=== PATIENT | male | born 1965 | race Caucasian/White ===

== ENCOUNTER → 2020-07-09 13:17 | Outpatient (BNVA) | payer OTHER, SELFPAY | PROVIDERS: PCP Internal Medicine Geriatric Medicine; Visit Provider Internal Medicine | DX: Z76.89 Persons encountering health services in other specified circumstances (principal) ==

== ENCOUNTER → 2020-09-03 15:57 | Outpatient (BNVA) | payer OTHER, SELFPAY | PROVIDERS: PCP Internal Medicine Geriatric Medicine; Visit Provider Internal Medicine | DX: Z76.89 Persons encountering health services in other specified circumstances (principal) ==

== ENCOUNTER → 2021-01-28 14:59 | Outpatient (BNVA) | payer OTHER, SELFPAY | PROVIDERS: PCP Internal Medicine Geriatric Medicine; Visit Provider Internal Medicine ==

== ENCOUNTER → 2021-06-24 15:14 | Outpatient (BNVA) | payer OTHER, SELFPAY | PROVIDERS: PCP Internal Medicine Geriatric Medicine; Visit Provider Internal Medicine ==

== ENCOUNTER 2024-06-15 07:19 | Outpatient (REF) | payer OTHER, SELFPAY ==
[2024-06-15 08:00] LABS: MANUAL DIFF FLAG NO
[2024-06-15 08:52] LABS: Basophils Absolute Auto 0.1 X10*3/uL (0.0-0.2); Basophils Percent Auto 1.3 % (0-2); Eosinophils Absolute Auto 0.1 X10*3/uL (0.0-0.4); Hemoglobin 16.5 g/dl (14.0-18.0); Imm Gran Abs Auto 0.06 X10*3/uL (0.00-0.03); Lymphocytes Absolute Auto 1.9 X10*3/uL (1.2-4.9); Lymphocytes Percent Auto 31.1 % (20-40); Mean Corpuscular Hemoglobin 29.9 pg (27.0-33.0); Mean Corpuscular Volume 90.6 fL (80.0-98.0); Mean Platelet Volume 10.3 fL (9.4-12.4); Monocytes Absolute Auto 0.6 X10*3/uL (0.1-1.2); Monocytes Percent Auto 9.2 % (2-11); Neutrophils Absolute Auto 3.3 x10*3/uL (2.0-8.3); Neutrophils Percent Auto 55.4 % (45-73); Platelet Count 222 X10*3/uL (160-400); Red Blood Count 5.52 X10*6/uL (4.60-5.80); Red Cell Distribution Width 13.5 % (11.0-16.0)
[2024-06-15 09:21] LABS: Alanine Aminotransferase 46 U/L (0-40); Albumin Level 4.4 g/dL (3.5-5.0); Alkaline Phosphatase 63 U/L (39-117); Anion Gap 12 (12-20); Aspartate Amino Transferase 20 U/L (5-37); Bilirubin Total 0.9 mg/dL (0.0-1.0); Blood Urea Nitrogen 19 mg/dL (9-16); Calcium 9.1 mg/dL (8.4-10.2); Carbon Dioxide 27 mmol/L (22-29); Chloride 107 mmol/L (96-108); Cholesterol 164 mg/dL (<200); Estimated Glomerular Filt Rate > 60; Glucose Random 97 mg/dL (60-115); HDL Cholesterol 31 mg/dL (>40); LDL Cholesterol Calculated 111 mg/dL (<100); Potassium 3.9 mmol/L (3.3-5.1); Sodium 142 mmol/L (135-145); Total Protein 7.3 g/dL (6.5-8.0); Triglycerides 110 mg/dL (<150)
== END 2024-06-15 07:20 | disposition home or self-care (01) ==
LOC: HO.LAB 07:19
PROVIDERS: PCP Internal Medicine Geriatric Medicine; Visit Provider Internal Medicine Geriatric Medicine
DX: Z13.220 Encounter for screening for lipoid disorders (principal); I10 Essential (primary) hypertension
CPT/HCPCS: 36415; 80053; 80061; 85025

== ENCOUNTER 2025-01-28 07:37 | Outpatient (REF) | payer OTHER, SELFPAY ==
--- OUTSIDE RECORDS SUMMARY | 2025-01-28 07:41 | XMS_ITS | Clinical Summary ---
Author Organization [employer] Address [address] [facility] [address] [place] [address] Care Team Providers Care Suspect Artist Supervisor Name Role Phone Name, James LOYA Primary Care Provider [phone] Allergies No known active allergies Medications valsartan (Diovan) 40 MG tabletIndicatio ns:Hypertension , unspecified type TAKE 1 TABLET BY MOUTH EVERY DAY 90 tablet 1 5 Active clindamycin (Cleocin-T) 1 % lotion Apply topically 2 times daily. 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, transverse, polypectomies: - Hyperplastic mucosal polyp. - Colonic mucosa with prominent lymphoid aggregate. B. Colon, sigmoid, polypectomy: Hyperplastic mucosal polyp. 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 11/28/2023 Neck pain 10/29/2018 05/29/2024 Elevated blood pressure reading 08/03/2016 12/19/2022 Snoring 08/03/2016 12/19/2022 Encounters Date Type Department Care Team Description 01/15/2025 3:45 PM EDT Office Visit [facility] [address] [place] [address] Name, MD James Obesity (BMI 30.0-34.9) (Primary Dx); Hypertension, unspecified type; Obstructive sleep apnea syndrome; Screening for prostate cancer; Screening for diabetes mellitus 01/15/2025 Travel 01/08/2025 Travel 12/20/2024 Refill [facility] [address] [place] [address] Name, MD James Hypertension, unspecified type from Last 3 Months Immunizations Immunization Administration Dates Next Due Hep B, adult 09/20/2019,04/20/2018,03/16/2018 Influenza injectable quadriv alent IIV4 with preservative 05/31/2018 Influenza injectable quadriv alent preservative free 05/02/2023,05/05/2022,05/07/2021,2013 TD (adult), 2 Lf tetanus tox oid, preservative free, adsorbed 05/18/2022,05/18/2022 Tdap 12/16/2011 Social History Tobacco Use Types Packs/Day Years Used Date Smoking Tobacco: Never Smokeless Tobacco: Never Tobacco Cessation:Counseling Given: Not Answered Alcohol Use Standard Drinks/Week Comments Yes 0 (1 standard drink = 0.6 oz pur e alcohol) socially Depression Answer Date Recorded Patient Health Questionnaire-9 Score 0 01/15/2025 Patient Health Questionnaire-9 Score 0 01/15/2025 Last PHQ-9: Questionnaire Data Not on file 0 01/15/2025 Housing Stability Answer Date Recorded What is your housing situation today? I have leni royce 01/15/[address] you li ve. Do you have problems with any of the following? None of the above 01/15/2025 Food Insecurity Answer Date Recorded Within the past 12 months, y ou worried that your food would run out before you got money to buy more: Never True 01/15/2025 Within the past 12 months,th e food you bought just didn't last and you didn't have enough money to get more: Never True Transportation Answer Date Recorded In the past 12 months, has l ack of transportation kept you from medical appts, meetings, work or from getting things needed for daily living? No 01/15/2025 Utilities Answer Date Recorded In the past 12 months, has t he electric, gas, oil or water company threatened to shut off services in your home? No 01/15/2025 Depression Answer Date Recorded Patient Health Questionnaire-2 Score 0 01/15/2025 Internet Access Answer Date Recorded Internet Access Q1 Yes 01/15/2025 Internet Access Q2 Not on file 01/15/2025 Sex and Gender Information Value Date Recorded Sex Assigned at Male 06/27/2022 10:20 AM EDT Legal Sex Male 10:20 AM EDT Gender Identity Male 06/27/2022 10:20 AM EDT Sexual Orientation Straight 06/27/2022 10 :20 AM EDT Last Filed Vital Signs Vital Sign Reading Time Taken Comments Blood Pressure 132/81 01/15/2025 4:24 PM EDT Pulse 78 01/15/2025 3:47 PM EDT Temperature 36.2 ??C (97.2 ??F) 01/15/2025 3:47 PM ED T Respiratory Rate 14 01/15/2025 3:47 PM EDT Oxygen Saturation 95% 01/15/2025 3:47 PM EDT Inhaled Oxygen Concentration - - Weight 112 kg (246 lb 3.2 oz) 01/15/2025 3:47 PM EDT Height 180.3 cm (5' 11 ) 05/29/2024 4:08 PM EDT Body Mass Index 34.34 05/29/2024 4:08 PM EDT Plan of Treatment Health Maintenance Due Date Last Done Comments CT Colonography 1967 FIT DNA/Cologuard 1967 FIT 1967 FOBT 1967 HIV Screening 1967 Sigmoidoscopy 1967 Hepatitis C Screening 1985 Pneumococcal Vaccine: 50+ Years (1 of 1 - PCV) 2017 Zoster Vaccines (1 of 2) 2017 Colonoscopy 07/12/2023 07/12/2018 Colorectal Cancer Screening 07/12/2023 COVID-19 Vaccine ( season) 2024 08/23/2023, 05/13/2022, 07/02/2021, Additional history exists Disability Screening 01/08/2026 01/08/2025 Alcohol/Substance Use Screening 01/15/2026 01/15/2025 Depression Screening 01/15/2026 01/15/2025, 01/16/20 SDOH Screening 01/15/2026 01/15/2025 Tobacco Screening 01/15/2026 01/15/2025 Lipid Panel 06/15/2029 06/15/2024, 05/15/2020 DTaP/Tdap/Td Vaccines (4 - Td or Tdap) 05/18/2032 05/18/2022, 05/18/2022, 12/16/2011 RSV Patients and Patients Aged 60 years or older (1 - 1-dose 75+ series) 2042 Hepatitis B Vaccines Completed 09/20/2019, 04/20/2018, 03/16/2018 Influenza Vaccine Completed 05/08/2024, , 05/05/2022, Additional history exists HIB Vaccines Aged Out No longer eligi ble based on patient's age to complete this topic HPV Vaccines Aged Out No longer eligi ble based on patient's age to complete this topic Hepatitis A Vaccines Aged Out No long er eligible based on patient's age to complete this topic IPV Vaccines Aged Out No longer eligi ble based on patient's age to complete this topic Meningococcal B Vaccine Aged Out No l onger eligible based on patient's age to complete this topic Meningococcal Vaccine Aged Out No rodney sheila eligible based on patient's age to complete this topic RSV under 20 months Aged Out No longe r eligible based on patient's age to complete this topic Rotavirus Vaccines Aged Out No longer eligible based on patient's age to complete this topic Procedures Procedure Name Priority Date/Time Associated Diagnosis Comments LIPID PANEL, STANDARD Routine 06/15/2024 7:58 AM EDT HM COLONOSCOPY Routine 07/12/2018 9:03 AM EST from Last 3 Months or Most Recently Relevant to Health Maintenance Results * (ABNORMAL) Lipid Panel, Standard (06/15/2024 7:58 AM EDT) Triglycerides 110 <150 mg/dL [facility] Comment:Desirable Triglyceri de: less than 150 mg/dLBorderline High Triglyceride 150-199 mg/dLHigh Triglyceride: 200-499 mg/dLVery High Triglyceride: greater than or equal to 5OO mg/dL Cholesterol 164 <200 mg/dL [facility] Comment:Desirable Cholestero l: less than 200 mg/dLBorderline High Cholesterol: 200-239 mg/dLHigh Cholesterol: greater than 239 mg/dL LDL Cholesterol Calculated 111(H) <100 mg/dL [facility] Comment:Desirable LDL: less than 100 mg/dLNear Optimal/Above Optimal LDL: 110- 129 mg/dLBorderline High LDL: 130-159 mg/dLHigh LDL: 160-189 mg/dLVery High LDL: greater than or equal to 190 mg/dL HDL Cholesterol 31(L) >40 mg/dL [facility] Comment:Desirable HDL: great er than 40 mg/dL Note: This HDL assay may give artificially low results in patients with liver disease. 06/15/2024 7:58 AM EDT 06/15/2024 7:58 AM EDT James Paula MD LAB BLOOD ORDERABLES Final Resul t [facility] [address] [place] [phone] * Colonoscopy (07/12/2018 9:03 AM EST) Colonoscopy Normal Normal Narrative Kimberly Guillory - 07/12/2018 9:03 AM EST Recommended 5 year follow up ( [facility] [place] Historical Provider HEALTH MAINTENANCE Final Result from Last 3 Months or Most Recently Relevant to Health Maintenance Insurance [facility] , [address] [place] [address] Care Teams Suspect Artist Supervisor Relationship Specialty Start Date End Date Name, MD James [address] [place] [phone] PCP - General Family Medicine 12/23/15
[2025-01-28 08:26] LABS: Estimated Average Glucose 111 mg/dL; Hemoglobin A1c % 5.5 % (<6.0)
[2025-01-28 08:47] LABS: Alanine Aminotransferase 49 U/L (0-40); Albumin Level 4.8 g/dL (3.5-5.0); Alkaline Phosphatase 72 U/L (39-117); Anion Gap 11 (12-20); Aspartate Amino Transferase 24 U/L (5-37); Bilirubin Total 1.4 mg/dL (0.0-1.0); Blood Urea Nitrogen 20 mg/dL (9-16); Calcium 9.2 mg/dL (8.4-10.2); Carbon Dioxide 28 mmol/L (22-29); Chloride 107 mmol/L (96-108); Cholesterol 163 mg/dL (<200); Estimated Glomerular Filt Rate > 60; Glucose Random 104 mg/dL (60-115); HDL Cholesterol 28 mg/dL (>40); LDL Cholesterol Calculated 109 mg/dL (<100); Sodium 142 mmol/L (135-145); Total Protein 7.6 g/dL (6.5-8.0); Triglycerides 132 mg/dL (<150)
[2025-01-28 09:08] LABS: Prostate Specific Antigen 0.84 ng/mL (<0.05-4.0)
== END 2025-01-28 07:38 | disposition home or self-care (01) ==
LOC: HO.LAB 07:37
PROVIDERS: PCP Internal Medicine Geriatric Medicine; Visit Provider Internal Medicine Geriatric Medicine
DX: E66.811 Obesity, class 1 (principal); Z13.1 Encounter for screening for diabetes mellitus; Z12.5 Encounter for screening for malignant neoplasm of prostate
CPT/HCPCS: 36415; 80053; 80061; 83036; 84153

== ENCOUNTER 2025-02-20 07:31 | Outpatient (REF) | payer OTHER, SELFPAY ==
--- OUTSIDE RECORDS SUMMARY | 2025-02-20 07:34 | XMS_ITS | Clinical Summary ---
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 Colon, transverse, polypectomies: - Hyperplastic mucosal [...] Encounters Date Type Department Care Team Description 02/10/2025 Telephone [facility] [place] [address] Mylene CLARENCE De Leon april recalls 02/03/2025 Telephone [facility] [place] [address] Moises Chakraborty [place] march recalls 01/30/2025 Results Follow-Up [facility] [place] [address] James Paula MD Comprehensive Metabolic Panel, Lipid Panel, Standard, PSA,Total, Hemoglobin A1c 01/15/2025 3:45 PM EDT Office Visit [facility] [place] [address] James Paula MD Obesity (BMI 30.0-34.9) (Primary Dx); Hypertension, unspecified type; Obstructive sleep apnea syndrome; Screening for prostate cancer; Screening for diabetes mellitus 01/15/2025 Travel 01/08/2025 Travel 12/20/2024 Refill [facility] [place] [address] James Paula MD Hypertension, unspecified type from Last 3 Months [...] your housing situation today? I have leni crane 01/15/[address] you li [...] 78 01/15/2025 3:47 PM EDT Temperature 36.2 C (97.2 F) 01/15/2025 3:47 PM EDT Respiratory Rate 14 01/15/2025 3:47 PM EDT Oxygen Saturation 95% 01/15/2025 3:47 PM EDT Inhaled Oxygen Concentration - - Weight 112 kg (246 lb 3.2 oz) 01/15/2025 3:47 PM EDT Height 180.3 cm (5' 11 ) 05/29/2024 4:08 PM EDT Body Mass Index 34.34 05/29/2024 4:08 PM EDT Plan of Treatment Upcoming Encounters Date Type Department Care Team (Late st Contact Info) Description 05/21/2025 3:30 PM EDT Office Visit [facility] [address] [place] [address] Name, MD James [address] [place] [address] Health Maintenance Due Date Last Done Comments [...] 01/15/2025 Tobacco Screening 01/15/2026 01/15/2025 Lipid Panel 01/28/2030 01/28/2025, 05/28, 05/15/2020 DTaP/Tdap/Td Vaccines (4 - Td or [...] Procedure Name Priority Date/Time Associated Diagnosis Comments HEMOGLOBIN A1C Routine 01/28/2025 7:48 AM EDT Screening for diabetes mellitus PSA, TOTAL Routine 01/28/2025 7:48 AM EDT Screening for prostate cancer LIPID PANEL, STANDARD Routine 01/28/2025 7:48 AM EDT Obesity (BMI 30.0-34.9) COMPREHENSIVE METABOLIC PANEL Routine 01/28/2025 7:48 AM EDT Obesity (BMI 30.0-34.9) HM COLONOSCOPY Routine 07/12/2018 9:03 AM EST from Last 3 Months or Most Recently Relevant to Health Maintenance Results * PSA,Total (01/28/2025 7:48 AM EDT) Prostate Specific Antigen 0.84 <0.05 - 4.0 ng/mL [facility] Comment:PSA methodology: Gonzalo Rowley i ChemiluminescentMicroparticle Immunoassay (CMIA) Blood Venous blood specimen / Unknown 01/28/2025 7:48 AM EDT 01/28/2025 7:49 AM EDT us James Name LAB BLOOD ORDERABLES Final Resul t [facility] [address] [place] [phone] * Hemoglobin A1c (01/28/2025 7:48 AM EDT) Hemoglobin A1c 5.5 <6.0 % [facility] Comment:Hemoglobin A1C Refer ence Range Adults: 4.8 - 6.0 % Non diabetic: < 6.0 % Goal: < 7.0 %Additional Action Suggested: > 8.0 %Note: Hemoglobin A1c results are invalid for patients with abnormal amounts of HbF. Blood transfusions may impact the HbA1c concentration in the patient sample. Estimated Average Glucose 111 mg/dL [facility] Comment:eAG = Estimated ave rage glucose which is %A1C expressed asaverage glucose, using the formula of the [id number]-[id number] Glucose study (ADAG), Diabetes Care, Vol.31,#8,Mar. 2007 Blood Venous blood specimen / Unknown 01/28/2025 7:48 AM EDT 01/28/2025 7:49 AM EDT us James Paula MD LAB BLOOD ORDERABLES Final Resul t [facility] [address] [place] [phone] * (ABNORMAL) Lipid Panel, Standard (01/28/2025 7:48 AM EDT) Triglycerides 132 <150 mg/dL [facility] Comment:Desirable Triglyceri de: less than 150 mg/dLBorderline High Triglyceride 150-199 mg/dLHigh Triglyceride: 200-499 mg/dLVery High Triglyceride: greater than or equal to 5OO mg/dL Cholesterol 163 <200 mg/dL [facility] Comment:Desirable Cholestero l: less than 200 mg/dLBorderline High Cholesterol: 200-239 mg/dLHigh Cholesterol: greater than 239 mg/dL LDL Cholesterol Calculated 109(H) <100 mg/dL [facility] Comment:Desirable LDL: less than 100 mg/dLNear Optimal/Above Optimal LDL: 110- 129 mg/dLBorderline High LDL: 130-159 mg/dLHigh LDL: 160-189 mg/dLVery High LDL: greater than or equal to 190 mg/dL HDL Cholesterol 28(L) >40 mg/dL [facility] Comment:Desirable HDL: great er than 40 mg/dL Note: This HDL assay may give artificially low results in patients with liver disease. Blood Venous blood specimen / Unknown 01/28/2025 7:48 AM EDT 01/28/2025 7:49 AM EDT us James Paula MD LAB BLOOD ORDERABLES Final Resul t [facility] [address] [place] [phone] * (ABNORMAL) Comprehensive Metabolic Panel (01/28/2025 7:48 AM EDT) Sodium 142 135 - 145 mmol/L [facility] Potassium 4.0 3.3 - 5.1 mmol/L [facility] Chloride 107 96 - 108 mmol/L [facility] Carbon Dioxide 28 22 - 29 mmol/L [facility] Anion Gap 11(L) 12 - 20 [facility] Urea Nitrogen (BUN) 20(H) 9 - 16 mg/dL [facility] Creatinine, Serum 0.92 0.5 - 1.4 mg/dL [facility] Estimated Glomerular Filt Rate >60 [facility] Comment:Chronic Kidney Disea se: Estimated GFR < 60 mL/min/[id number] Kidney Disease: Estimated GFR < 15 mL/min/1.73m2 Glucose 104 60 - 115 mg/dL [facility] Calcium 9.2 8.4 - 10.2 mg/dL [facility] Bilirubin, Total 1.4(H) 0.0 - 1.0 mg/dL [facility] Aspartate Amino Transferase 24 5 - 37 U/L [facility] Alanine Aminotransferase 49(H) 0 - 40 U/L [facility] Total Protein 7.6 6.5 - 8.0 g/dL [facility] Albumin Level 4.8 3.5 - 5.0 g/dL [facility] Alkaline Phosphatase 72 39 - 117 U/L [facility] Blood Venous blood specimen / Unknown 01/28/2025 7:48 AM EDT 01/28/2025 7:49 AM EDT us James Name LAB BLOOD ORDERABLES Final Resul t [facility] [address] [place] [phone] * Colonoscopy (07/12/2018 9:03 AM EST) Colonoscopy Normal Normal Narrative Kimberly Guillory - 07/12/2018 9:03 AM EST Recommended 5 year follow up ( [facility] [place] ) Historical Provider HEALTH MAINTENANCE Final Result from Last 3 Months or Most Recently Relevant to Health Maintenance Insurance [facility] , [address] [place] [address] Care Teams Market Survey Representative Relationship Specialty Start Date End Date Name, MD James [address] [place] [phone] PCP - General Family Medicine 12/23/15
[2025-02-20 07:44] LABS: MANUAL DIFF FLAG NO
[2025-02-20 07:52] LABS: Basophils Absolute Auto 0.1 X10*3/uL (0.0-0.2); Basophils Percent Auto 1.7 % (0-2); Eosinophils Absolute Auto 0.1 X10*3/uL (0.0-0.4); Eosinophils Percent Auto 2.2 % (0-4); Hematocrit 48.1 % (42.0-52.0); Imm Gran Abs Auto 0.03 X10*3/uL (0.00-0.03); Imm Gran Pct Auto 0.6 % (0.0-0.4); Lymphocytes Absolute Auto 1.6 X10*3/uL (1.2-4.9); Lymphocytes Percent Auto 29.6 % (20-40); Mean Corpuscular HGB Conc 33.3 g/dl (31.0-36.0); Mean Corpuscular Volume 90.2 fL (80.0-98.0); Mean Platelet Volume 10.2 fL (9.4-12.4); Monocytes Absolute Auto 0.4 X10*3/uL (0.1-1.2); Monocytes Percent Auto 7.8 % (2-11); Neutrophils Absolute Auto 3.2 x10*3/uL (2.0-8.3); Neutrophils Percent Auto 58.1 % (45-73); Platelet Count 202 X10*3/uL (160-400); Red Blood Count 5.33 X10*6/uL (4.60-5.80); Red Cell Distribution Width 13.3 % (11.0-16.0); White Blood Count 5.4 X10*3/uL (4.8-10.8)
[2025-02-20 08:16] LABS: Alanine Aminotransferase 55 U/L (0-40); Albumin Level 4.9 g/dL (3.5-5.0); Alkaline Phosphatase 60 U/L (39-117); Aspartate Amino Transferase 28 U/L (5-37); Bilirubin Direct 0.5 mg/dL (0.0-0.5); Bilirubin Total 1.7 mg/dL (0.0-1.0); Total Protein 7.4 g/dL (6.5-8.0)
== END 2025-02-20 07:32 | disposition home or self-care (01) ==
LOC: HO.LAB 07:31
PROVIDERS: PCP Internal Medicine Geriatric Medicine; Visit Provider Internal Medicine Geriatric Medicine
DX: R74.01 Elevation of levels of liver transaminase levels (principal); R17 Unspecified jaundice
CPT/HCPCS: 36415; 80076; 85025

== ENCOUNTER 2025-03-25 09:31 | Outpatient (REF) | payer OTHER, SELFPAY ==
--- NOTE | ~2025-03-25 | US_ITS ---
CLINICAL HISTORY: mild trasaminitis and bilirubin elevation US abdomen complete. COMPARISON: None provided. Technique: Real time sonographic imaging, including color-flow imaging, was performed by the paradichlorobenzene tender. Multiple assisted sales representative static images were saved for review. FINDINGS: The visualized aorta and inferior vena cava are normal caliber. Pancreas is obscured by overlying bowel gas. The liver has diffusely increased echogenicity. Liver, right lobe size: 15.4 cm, normal. The gallbladder is normal in size. No cholelithiasis or sludge identified. There is a negative sonographic Germain's sign. Gallbladder wall: 2 mm, normal. Common bile duct is not identified. Right kidney: Cortical medullary differentiation is maintained. Normal color flow by Doppler. No calculus or focal parenchymal abnormality identified. No hydronephrosis. Right kidney length: 13.0 cm Left kidney: Cortical medullary differentiation is maintained. Normal color flow by Doppler. No calculus or focal parenchymal abnormality identified. No hydronephrosis. Left kidney length: 13.3 cm The spleen has normal echogenicity. Splenic length: 11.2 cm, normal. No free intraperitoneal fluid identified. IMPRESSION: 1. No acute findings. No evidence of cholecystitis or renal obstruction. 2. Hepatic steatosis. This document has been electronically signed by: Kahlil Partida MD on 03/25/2025 16:27:21
--- OUTSIDE RECORDS SUMMARY | 2025-03-25 10:03 | XMS_ITS | Clinical Summary ---
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 Colon, transverse, polypectomies: [...] Type Department Care Team Description 02/10/2025 Telephone [facility] [place] [address] Mylene CLARENCE De Leon april recalls 02/03/2025 Telephone [facility] [place] [address] Moises Chakraborty [place] march recalls 01/30/2025 Results Follow-Up [facility] [place] [address] James Paula MD Comprehensive Metabolic Panel, Lipid Panel, Standard, PSA,Total, Hemoglobin A1c 01/15/2025 3:45 PM EDT Office Visit [facility] [place] [address] James Paula MD Obesity (BMI 30.0-34.9) (Primary Dx); Hypertension, unspecified type; Obstructive sleep apnea syndrome; Screening for prostate cancer; Screening for diabetes mellitus 01/15/2025 Travel 01/08/2025 Travel from Last 3 Months Immunizations Immunization Administration [...] Description 05/21/2025 3:30 PM EDT Office Visit [facility] [address] [place] [phone] Name, MD James [address] [place] [address] Health Maintenance Due Date Last Done Comments CT Colonography 1967 FIT DNA/Cologuard 1967 FIT 1967 FOBT 1967 HIV Screening 1967 Sigmoidoscopy 1967 Hepatitis C Screening 1985 Pneumococcal Vaccine: 50+ Years (1 of 1 - PCV) 2017 Zoster Vaccines (1 of 2) 2017 Colonoscopy 07/12/2023 07/12/2018 Colorectal Cancer Screening 07/12/2023 COVID-19 Vaccine ( season) 2024 08/23/2023, 05/13/2022, 07/02/2021, Additional history exists Influenza Vaccine (#1) 2025 , 05/02/2023, 05/05/2022, Additional history exists Disability Screening 01/08/2026 01/08/2025 [...] Hepatitis B Vaccines Completed 09/20/2019, 04/20/2018, 03/16/2018 HIB Vaccines Aged Out No longer eligi [...] Procedure Name Priority Date/Time Associated Diagnosis Comments CBC WITH AUTO DIFFERENTIAL Routine 02/20/2025 7:43 AM EDT Transaminitis Elevated bilirubin HEPATIC FUNCTION PANEL Routine 7:43 AM EDT Transaminitis Elevated bilirubin HEMOGLOBIN A1C Routine 01/28/2025 7:48 AM EDT [...] Relevant to Health Maintenance Results * (ABNORMAL) CBC auto differential (02/20/2025 7:43 AM EDT) White Blood Count 5.4 4.8 - 10.8 X10*3/uL [facility] Red Blood Count 5.33 4.60 - 5.80 X10*6/uL [facility] Hemoglobin 16.0 14.0 - 18.0 g/dl [facility] Hematocrit 48.1 42.0 - 52.0 % [facility] Mean Corpuscular Volume 90.2 80.0 - 98.0 fL [facility] Mean Corpuscular Hemoglobin 30.0 27.0 - 33.0 pg [facility] Mean Corpuscular HGB Conc 33.3 31.0 - 36.0 g/dl [facility] Red Cell Distribution Width 13.3 11.0 - 16.0 % [facility] Platelet Count 202 160 - 400 X10*3/uL [facility] Mean Platelet Volume 10.2 9.4 - 12.4 fL [facility] Neutrophils Percent Auto 58.1 45 - 73 % [facility] Imm Gran Pct Auto 0.6(H) 0.0 - 0.4 % [facility] Lymphocytes Percent Auto 29.6 20 - 40 % [facility] Monocytes Percent Auto 7.8 2 - 11 % [facility] Eosinophils Percent Auto 2.2 0 - 4 % [facility] Basophils Percent Auto 1.7 0 - 2 % [facility] NRBC Pct Auto 0.0 0.0 - 0.2 /100WBC [facility] Neutrophils Absolute Auto 3.2 2.0 - 8.3 x10*3/uL [facility] Imm Gran Abs Auto 0.03 0.00 - 0.03 X10*3/uL [facility] Lymphocytes Absolute Auto 1.6 1.2 - 4.9 X10*3/uL [facility] Monocytes Absolute Auto 0.4 0.1 - 1.2 X10*3/uL [facility] Eosinophils Absolute Auto 0.1 0.0 - 0.4 X10*3/uL [facility] Basophils Absolute Auto 0.1 0.0 - 0.2 X10*3/uL [facility] NRBC Abs Auto 0.000 0.0 - 0.012 X10*3/uL [facility] Blood Venous blood specimen / Unknown 02/20/2025 7:43 AM EDT 02/20/2025 7:43 AM EDT us James Paula MD LAB BLOOD ORDERABLES Final Resul t [facility] [address] [place] [address] [phone] * (ABNORMAL) Hepatic Function Panel (02/20/2025 7:43 AM EDT) Bilirubin, Total 1.7(H) 0.0 - 1.0 mg/dL [facility] Bilirubin, Direct 0.5 0.0 - 0.5 mg/dL [facility] Aspartate Amino Transferase 28 5 - 37 U/L [facility] Alanine Aminotransferase 55(H) 0 - 40 U/L [facility] Total Protein 7.4 6.5 - 8.0 g/dL [facility] Albumin Level 4.9 3.5 - 5.0 g/dL [facility] Alkaline Phosphatase 60 39 - 117 U/L [facility] Blood Venous blood specimen / Unknown 02/20/2025 7:43 AM EDT 02/20/2025 7:43 AM EDT us James Paula MD LAB BLOOD ORDERABLES Final Resul t Performing Organization Address [facility] Co de Phone Number [facility] [address] [place] [phone] * PSA,Total (01/28/2025 7:48 AM EDT) Pathologist [facility] Prostate Specific Antigen 0.84 <0.05 - 4.0 ng/mL [facility] Comment:PSA methodology: Gonzalo Rowley i ChemiluminescentMicroparticle Immunoassay (CMIA) Blood Venous blood specimen / Unknown 01/28/2025 7:48 AM EDT 01/28/2025 7:49 AM EDT us James Paula MD LAB BLOOD ORDERABLES Final Resul t Performing Organization Address City/[facility] Co de Phone Number [facility] [address] [place] [phone] * Hemoglobin A1c (01/28/2025 7:48 AM EDT) Hemoglobin A1c 5.5 <6.0 % [facility] Comment:Hemoglobin A1C Refer ence Range Adults: 4.8 - 6.0 % Non diabetic: < 6.0 % Goal: < 7.0 %Additional Action Suggested: > 8.0 %Note: Hemoglobin A1c results are invalid for patients with abnormal amounts of HbF. Blood transfusions may impact the HbA1c concentration in the patient sample. Estimated Average Glucose 111 mg/dL [facility] Comment:eAG = Estimated ave rage glucose which is %A1C expressed asaverage glucose, using the formula of the U3S-BqejypgOggmiit Glucose study (ADAG), Diabetes Care, Vol.31,#8,2007 Blood Venous blood specimen / Unknown 01/28/2025 7:48 AM EDT 01/28/2025 7:49 AM EDT us James Name LAB BLOOD ORDERABLES Final Resul t [facility] [address] [place] [phone] * (ABNORMAL) Lipid Panel, Standard (01/28/2025 7:48 AM EDT) Triglycerides 132 <150 mg/dL [facility] Comment:Desirable Triglyceri de: less than 150 mg/dLBorderline High Triglyceride 150-199 mg/dLHigh Triglyceride: 200-499 mg/dLVery High Triglyceride: greater than or equal to 5OO mg/dL Cholesterol 163 <200 mg/dL [facility] Comment:Desirable Cholestero l: less than 200 mg/dLBorderline High Cholesterol: 200-239 mg/dLHigh Cholesterol: greater than 239 mg/dL LDL Cholesterol Calculated 109(H) <100 mg/dL [facility] Comment:Desirable LDL: less than 100 mg/dLNear Optimal/Above Optimal LDL: 110- 129 mg/dLBorderline High LDL: 130-159 mg/dLHigh LDL: 160-189 mg/dLVery High LDL: greater than or equal to 190 mg/dL HDL Cholesterol 28(L) >40 mg/dL [facility] Comment:Desirable HDL: great er than 40 mg/dL Note: This HDL assay may give artificially low results in patients with liver disease. Blood Venous blood specimen / Unknown 01/28/2025 7:48 AM EDT 01/28/2025 7:49 AM EDT us James Paula MD LAB BLOOD ORDERABLES Final Resul t Performing Organization Address City/[facility]/ZIP Co de Phone Number [facility] [address] [place] [phone] * (ABNORMAL) Comprehensive Metabolic Panel (01/28/2025 7:48 AM EDT) Sodium 142 135 - 145 mmol/L [facility] Potassium 4.0 3.3 - 5.1 mmol/L [facility] Chloride 107 96 - 108 mmol/L [facility] Carbon Dioxide 28 22 - 29 mmol/L [facility] Anion Gap 11(L) 12 - 20 [facility] Urea Nitrogen (BUN) 20(H) 9 - 16 mg/dL [facility] Creatinine, Serum 0.92 0.5 - 1.4 mg/dL [facility] Estimated Glomerular Filt Rate >60 [facility] Comment:Chronic Kidney Disea se: Estimated GFR < 60 mL/min/1.26y9Vshyoo Kidney Disease: Estimated GFR < 15 mL/min/1.73m2 Glucose 104 60 - 115 mg/dL [facility] Calcium 9.2 8.4 - 10.2 mg/dL [facility] Bilirubin, Total 1.4(H) 0.0 - 1.0 mg/dL [facility] Aspartate Amino Transferase 24 5 - 37 U/L [facility] Alanine Aminotransferase 49(H) 0 - 40 U/L [facility] Total Protein 7.6 6.5 - 8.0 g/dL [facility] Albumin Level 4.8 3.5 - 5.0 g/dL [facility] Alkaline Phosphatase 72 39 - 117 U/L [facility] Blood Venous blood specimen / Unknown 01/28/2025 7:48 AM EDT 01/28/2025 7:49 AM EDT us James Paula MD LAB BLOOD ORDERABLES Final Resul t Performing Organization Address City/[facility]/ZIP Co de Phone Number [facility] [address] [place] [phone] [phone] * Colonoscopy (07/12/2018 9:03 AM EST) Colonoscopy Normal Normal Kimberly Cash - 07/12/2018 9:03 AM EST Recommended 5 year follow up ( [facility] ) us Historical Provider HEALTH MAINTENANCE Final Result from Last 3 Months or Most Recently Relevant to Health Maintenance Insurance [facility] , [address] [place] [address] Care Teams Dipper Operator Relationship Specialty Start Date End Date Name, MD James [address] [place] [phone] PCP - General Family Medicine 12/23/15
--- OUTSIDE RECORDS SUMMARY | 2025-03-25 10:03 | XMS_ITS | Data Portability ---
Author Organization [facility] Address [address] [place] [address] Assessment No assessment recorded. Plan of Treatment Reminders Order Date Submit Date Provider Last Modified By Organization Details Last Modified Time Details Appointments None record ed. Lab None record ed. Referral None record ed. Procedures None record ed. Surgeries None record ed. 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 Patient TargetsNo targets recorded. Patient InstructionsNo instructions recorded. Reason for Referral None Reported. Medical Equipment None Reported. Allergies No known drug allergies Medications Name Sig Start Date Stop Date Status Note LastModified by Organization Details LastModified Time valsartan 40 mg tablet TAKE 1 TABLET BY MOUTH EVERY DAY active Not Available Not Available No t Available Vitals Date Recorded Body height Body mass index (BMI) Body weight Provider Name and Address Organization Details Last Updated DateTime 12/05/2023 180.34 cm 32.8 kg/m2 801229.21 g QUIN CONNOR [facility] 12/05/2023 11:16:25 Social History None recorded. Functional Status None recorded. Mental Status None recorded. Family History Nothing Reported. Medical History No medical history recorded. Past Encounters Encounter ID Performer Location Encounter Start Date Encounter Closed Date Diagnosis/Indication Diagnosis SNOMED-CT Code Diagnosis ICD10 Code Diagnosis Note [id number] MD Rex Pollock [address] [place] [address] 12/05/2023 10:57:20 12/18/2023 14:09:07 Pain in left thumb [id number] 012343 M79.645 Mass of obed int of left wrist 5814128240 [id number] M25.832 Health Concerns Section Related Observation LastModified by Organization Petrona nolasco LastModified Time None Recorded Concern Status LastModified by Organization Details LastModified Time None Recorded Advance Directives Directive None Recorded Payers Insurance Date Sequence Insurance Name Policy Number Policy Ayala Covered Member ID Ayala Member ID Guarantor Name 12/18/2023 1 [facility] [id number] [place] Grewal [id number] [place] Grewal
--- OUTSIDE RECORDS SUMMARY | 2025-03-25 10:03 | XMS_ITS | Clinical Summary ---
Author Organization [facility] Address [address] [place] [address] Care Team Providers Care Manager Auto Name Role Phone Name, James LOYA Primary Care Provider [phone] Surgical History Surgery Date Site/Laterality Comments OTHER SURGICAL HISTORY PROCEDURE: DENIES PREVIOUS SURGERY Family History Relation Name Status Comments Brother 1 Alive Brother 2 Alive Brother 3 Alive neurofibromatos is Daughter Alive Father lung CA Mother Alive Sister 1 asthma Sister 2 Alive Social History Tobacco Use Types Packs/Day Years Used Date Smoking Tobacco: Never Smokeless Tobacco: Never Alcohol Use Standard Drinks/Week Comments Yes 0 (1 standard drink = 0.6 oz pur e alcohol) Sex and Gender Information Value Date Recorded Sex Assigned at Not on file Legal Sex Male 1:10 PM EST Gender Identity Not on file Sexual Orientation Not on file Obstetrics History Plan of Treatment Health Maintenance Due Date Last Done Comments Hepatitis B Vaccines (1 of 3 - 19+ 3-dose series) 1986 Pneumococcal Vaccine: 50+ Ye ars (1 of 1 - PCV) 2017 Zoster Vaccines (1 of 2) 2017 DTaP,Tdap,and Td Vaccines (2 - Td or Tdap) 12/15/2021 12/16/2011 COVID-19 Vaccine ( - 2023-2 5 season) 2024 Depression Screening 08/28/2024 Influenza Vaccine (#1) 2025 HIB Vaccines Aged Out No longer eligi [...] on patient's age to complete this topic MMR Vaccines Aged Out No longer eligi ble based on patient's age to complete this topic Meningococcal ACWY Vaccine Aged Out N o longer eligible based on patient's age to complete this topic Meningococcal B Vaccine Aged Out No l onger eligible based on patient's age to complete this topic RSV Immunization Patients Un ervin 20 months Aged Out No longer eligible b ased on patient's age to complete this topic Varicella Vaccines Aged Out No longer eligible based on patient's age to complete this topic Care Teams Manager Auto Relationship Specialty Start Date End Date Name, MD James [address] [place] [address] PCP - General Internal Medicine 05/01/19
--- OUTSIDE RECORDS SUMMARY | 2025-03-25 10:03 | XMS_ITS | Clinical Summary ---
Author Organization [facility] Address [address] [place] [address] Care Team Providers Care Project Planner Name Role Phone Aminah Chinchilla PA-C Primary Care Provider Source Comments PLEASE NOTE, if this patient is a minor, it may be UNLAWFUL to discuss sensitive information that is contained in these records (such as FAMILY PLANNING, MENTAL HEALTH or SUBSTANCE ABUSE) with the minor patient's parent or other person without the patient's specific authorization.[facility] Immunizations Immunization Administration Dates Next Due Flu, Preservative Free 05/02/2023,05/05/2022,05/2021 Hep B, Adult/Adol ([id number]/RECOMBIVAX-ADULT) 09/20/2019,04/20/2018,03/16/2018 Influenza (FLUBLOK),recombinant,injectable,preservati ve Free 05/08/2024 MODERNA COVID-19 VACCINE BIV ALENT, BLUE CAP, 6M+ 05/13/2022 Moderna COVID-19 (Spikevax), Mrna, Lnp-s, Pf, 50 Mcg/0.5 Ml, 12yr+ 08/23/2023 Moderna COVID-19 Vaccine, re d cap blue label, 12+ Primary Series 07/02/2021 Td (adult),2 Lf tetanus toxo id (TDVAX), preservative free 05/18/2022 Social History Tobacco Use Types Packs/Day Years Used Date Smoking Tobacco: Never Assessed Social Connections Answer Date Recorded Connectedness 0 05/17/2024 Financial Resource Strain Answer Date R ecorded Financial Resource Strain 0 2021 Stress Answer Date Recorded Stress 0 08/30/2021 Physical Activity Answer Date Recorded Physical Activity 0 08/30/2021 Food Insecurity Answer Date Recorded Food 0 05/23/2024 Transportation Needs Answer Date Record ed Transportation 0 08/30/2021 Housing Stability Answer Date Recorded Housing 0 08/30/2021 Safety and Environment Answer Date Maxx rded Safety 0 08/30/2021 Utilities Answer Date Recorded Utilities 0 08/30/2021 Employment Answer Date Recorded Stress 0 05/17/2024 Sex and Gender Information Value Date Recorded Sex Assigned at Male 06/04/2024 9:24 AM PDT Legal Sex Male 5:10 AM PST Gender Identity Male 06/04/2024 9:24 AM PDT Sexual Orientation Straight 06/04/2024 9: 24 AM PDT Plan of Treatment Health Maintenance Due Date Last Done Comments Anxiety Screening 1967 Hepatitis C Screening 1967 Tobacco Screening 1967 HIV Screening 1982 Hypertension Screening (#1) 1985 CT Colonography 2012 Colonoscopy 2012 Colorectal Cancer Screening 2012 FIT/gFOBT 2012 Fecal DNA 2012 Flexible Sigmoidoscopy 2012 Imm-Pneumococcal 50+ (1 of 1 - PCV) 2017 Imm-Zoster, Recombinant (1 of 2) 2017 [id number] () 04/28/2024 08/23/2023, 05/13/2022, 07/02/2021, Additional history exists Alcohol and Drug Screen 08/28/2024 Depression Annual Screen 08/28/2024 Imm-Influenza (#1) 2025 05/08/2024, 0 05/02/2023, 05/05/2022, Additional history exists Diabetes Screening 01/29/2028 01/28/2025, 0 01/28/2025, 01/28/2025 Lipid Screening 01/28/2030 01/28/2025 Imm-DTaP/Tdap/Td (3 - Td or Tdap) 05/18/2032 022, 12/16/2011 Imm-Hepatitis B Completed 09/20/2019, 03/29, 03/16/2018 Procedures Procedure Name Priority Date/Time Associated Diagnosis Comments COVID-19, ID NOW, DICKERSON (POCT) Routine 03/06/2025 8:57 AM EDT Encounter for laboratory testing for COVID-19 virus ID NOW INFLUENZA A&B2 (POCT) Routine 03/03/2025 8:31 AM EDT Flu-like symptoms COVID-19, ID NOW, DICKERSON (POCT) Routine 03/03/2025 8:31 AM EDT Encounter for laboratory testing for COVID-19 virus from Last 3 Months Results * (ABNORMAL) COVID-19, ID NOW, DICKERSON (POCT) Nasal Swab Routine (03/06/2025 8:57 AM EDT) Only the most recent of2 resultswithin the time period is included. COVID-19 POSITIVE(A ) NEGATIVE [facility] PO[facility] INTERNAL CONTROL PASS PASS [facility] PO[facility] Swab Nasal structure / Unknown 03/06/2025 8:57 AM EDT Aminah BUTT-C LAB BODY FLUIDS AND STOOLS A MBULATORY Final Result [facility] POCT * ID NOW INFLUENZA A&B2 (POCT) Nasal Swab Routine (03/03/2025 8:31 AM EDT) INFLUENZA A NEGATIVE NEGATIVE [facility] POCT INFLUENZA B NEGATIVE NEGATIVE [facility] POCT INTERNAL CONTROL PASS PASS [facility] POCT Swab Nasal structure / Unknown 03/03/2025 8:31 AM EDT Amniah Chinchilla PA-C LAB BODY FLUIDS AND STOOLS A MBULATORY Final Result [facility] POCT from Last 3 Months Insurance [employer] [place] [facility]) Member Subscriber Plan / Payer (Ef fective 2020-Present) Name:Montana Ram Relation to Subscriber:Self Name:Montana Ram Payer ID:[id number] Type:[employer] Address: [address] [place] [phone] Care Teams Project Planner Relationship Specialty Start Date End Date Aminah Chinchilla PA-C [address] [place] [address] PCP - General FAMILY MEDICINEFILOMENA 02/22/24
== END 2025-03-25 09:32 | disposition home or self-care (01) ==
LOC: HO.US 09:31
PROVIDERS: PCP Internal Medicine Geriatric Medicine; Visit Provider Internal Medicine Geriatric Medicine
DX: R74.01 Elevation of levels of liver transaminase levels (principal); R17 Unspecified jaundice
CPT/HCPCS: 76700

== ENCOUNTER → 2025-03-25 09:43 | Outpatient (BNV) | payer OTHER, SELFPAY | PROVIDERS: PCP Internal Medicine Geriatric Medicine; Visit Provider Radiology Diagnostic Radiology | DX: K76.0 Fatty (change of) liver, not elsewhere classified (principal) | CPT/HCPCS: 76700 ==

== ENCOUNTER → 2025-06-30 14:13 | Outpatient (REF) | payer OTHER, SELFPAY ==
--- NOTE | 2025-06-30 14:16 | CA_ITS ---
Transthoracic Echocardiogram Patient (Last, First, Middle): [place] Summers E Gender: M Date of : 1965 Age: 60 Procedure Date: 06/30/2025 Procedure Type: Transthoracic Echocardiogram Location: OP Height: 180.34 cm Weight: 108.86 kg BSA: 2.28 m2 Heart Rate: 93 bpm BP: 130 / 85 mmHg Customer Support Manager: SB Referring MD: James Paula MD Symptoms: HTN Study Quality: Adequate ECG Rhythm: Sinus Conclusions: - The left ventricular systolic function is normal. The calculated ejection fraction is 55% by biplane method. - No obvious valvular pathology seen on this study. Findings Left Ventricle Normal left ventricular cavity size. There is mildly increased left ventricular wall thickness. The left ventricular systolic function is normal. The calculated ejection fraction is 55% by biplane method. There is no evidence of regional wall motion abnormalities. Evidence suggests grade I (mild) diastolic dysfunction. Right Ventricle Normal right ventricular cavity size and systolic function. Atria Both atria are normal in size. Aortic Valve There is a normal trileaflet aortic valve. There is no aortic valve stenosis. There is no aortic valve regurgitation. Mitral Valve The mitral valve appears normal. There is no mitral valve regurgitation. There is no mitral valve stenosis. Pulmonic Valve The pulmonic valve is likely normal. Tricuspid Valve There is no tricuspid valve regurgitation. Tricuspid regurgitation envelope is inadequate for calculation of right ventricular systolic pressure. Great Vessels Top normal ascending aortic size. Venous The inferior vena cava was not well visualized. Pericardium/Pleural There is no evidence of pericardial effusion. Prior Study Comparison No prior study available for comparison. Recommendations, Care & Conclusions No obvious valvular pathology seen on this study. Measurements 2D Linear Measurements IVSd: 1.03 0.6-0.9/0.6-1.0 cm LVIDd: 4.75 3.9-5.3/4.2-5.9 cm LVIDd Index: 2.08 2.4-3.2/2.2-3.1 cm/m2 LVIDs: 2.57 2.0-3.6 cm LVPWd: 1.07 0.7-1.1 cm LA Diam: 4.00 2.7-3.8/3.0-4.0 cm LAIDs Index: 1.75 1.5-2.3 cm/m2 LV Mass: 222.82 67-162/88-224 g LV Mass Index: 97.73 43-95/49-115 g/m2 LVOT Diam: 2.70 3.0+(-)1.3 cm 2D Systolic Function EF 4C: 52.70 >55% EF 2C: 58.50 >55% EF BiP: 55.10 >55% Mitral Valve MV Pk E: 0.94 MV PK A: 0.71 MV Decel Time: 190.00 E/A: 1.30 E'Lateral: 5.98 E'Medial: 5.55 E/E' Med: 16.90 E/E' Lat: 15.70 PHT: 56.00 MVA PHT: 3.93 Decel Gregory: 4.92 Aortic Valve AoV Pk Praful: 1.51 AoV Pk Grad: 9.00 LVOT LVOT Pk Praful: 1.21 LVOT Mn Praful: 0.89 LVOT VTI: 0.22 LVOT Pk Grad: 6.00 LVOT Mn Grad: 3.00 LVOT Diam: 2.70 LVOT Area: 5.73 Diastolic Function MV Pk E: 0.94 MV Pk A: 0.71 E/A: 1.30 E'Medial: 5.55 E/E' Med: 16.90 E' Laterial: 5.98 E/E' Lat: 15.70 Right Ventricle TAPSE (mm): 24.10 TVS' Praful: 17.90 Great Vessels Aorta Sinus of Valsalva: 3.90 2.0-3.5 cm Ao Asc: 3.80 2.1-3.4 cm Pulmonary Veins Pulm Vein S/D 1.50 Pulmonary Valve PV Pk Praful: 1.28 Peak PV Grad: 7.00 MO Pk Praful: 1.70 Updated in Other Vendor System with Status of Final Edgard Rowley MD electronically signed on 06/30/2025 3:32:21 PM with status of Final
== END ==
LOC: HO.CARD 14:13
PROVIDERS: PCP Internal Medicine Geriatric Medicine; Visit Provider Internal Medicine Geriatric Medicine
DX: I10 Essential (primary) hypertension (principal)
CPT/HCPCS: 93306

== ENCOUNTER → 2025-06-30 14:16 | Outpatient (BNV) | payer OTHER, SELFPAY | PROVIDERS: PCP Internal Medicine Geriatric Medicine; Visit Provider Internal Medicine | DX: I51.89 Other ill-defined heart diseases (principal) | CPT/HCPCS: 93306 ==

== ENCOUNTER 2025-07-04 07:40 | Outpatient (REF) | payer OTHER, SELFPAY ==
--- OUTSIDE RECORDS SUMMARY | 2025-07-04 07:42 | XMS_ITS | Encounter Summary ---
Author Organization [facility] Address [address] [facility] 7 [place] [address] Care Team Providers Care Staff Midwife Name Role Phone Name, James LOYA Primary Care Provider [phone] Reason for Visit * Reason Onset Date Comments Appointment Request 09/10/2024 Encounter Details Date Type Department Care Team ([facility] Contact Info) Description 09/10/2024 Telephone [facility] MEDICINE [address] [place] [address] Name, MD James [address] [place] [address] Appointment Request Social History Tobacco Use Types Packs/Day Years Used Date Smoking Tobacco: Never Smokeless Tobacco: Never Alcohol Use Standard Drinks/Week Comments Yes 0 (1 standard drink = 0.6 oz pur e alcohol) socially Depression Answer Date Recorded Patient Health Questionnaire-9 Score 0 05/29/2024 Patient Health Questionnaire-9 Score 0 05/29/2024 Last PHQ-9: Questionnaire Data Not on file 1 Housing Stability Answer Date Recorded What is your housing situation today? I have leni crane 07/03/[address] you li ve. Do you have problems with any of the following? None of the above 07/03/2023 Food Insecurity Answer Date Recorded Within the past 12 months, y ou worried that your food would run out before you got money to buy more: Never True 07/03/2023 Within the past 12 months,th e food you bought just didn't last and you didn't have enough money to get more: Never True 01/2023 Transportation Answer Date Recorded In the past 12 months, has l ack of transportation kept you from medical appts, meetings, work or from getting things needed for daily living? No 07/03/2023 Utilities Answer Date Recorded In the past 12 months, has t he electric, gas, oil or water company threatened to shut off services in your home? No 07/03/2023 Depression Answer Date Recorded Patient Health Questionnaire-2 Score 0 05/29/2024 Sex and Gender Information Value Date Recorded Sex Assigned at Male 06/27/2022 10:20 AM EDT Legal Sex Male 10:20 AM EDT Gender Identity Male 06/27/2022 10:20 AM EDT Sexual Orientation Straight 06/27/2022 10 :20 AM EDT documented as of this encounter Miscellaneous Notes * Telephone Encounter - Dari Michael - 09/10/2024 2:29 PM EST Tc from pt requesting reschedule 10/07 appt. documented in this encounter Plan of Treatment Upcoming Encounters Date Type Department Care Team (Late st Contact Info) Description 07/17/2025 11:15 AM EST Office Visit [facility] MEDICINE [address] [place] [address] Name, MD James [address] [place] [address] documented as of this encounter Visit Diagnoses Not on filedocumented in this encounter Additional Health Concerns Assessment Noted Time PHQ-9 Depression Total Score: 0 05/29/20 24 4:09 PM EDT documented as of this encounter Care Teams Staff Midwife Relationship Specialty Start Date End Date Name, MD James [address] [place] [address] PCP - General Family Medicine 12/23/15 documented as of this encounter
--- OUTSIDE RECORDS SUMMARY | 2025-07-04 07:42 | XMS_ITS | Clinical Summary ---
Author Organization [facility] Address [address] [place] [address] Care Team Providers Care Grinder And Plater Name Role Phone Name, James LOYA Primary Care Provider [phone] Surgical History Surgery Date Site/Laterality Comments OTHER [...] (2 - Td or Tdap) 12/15/2021 12/16/2011 Depression Screening 08/28/2024 COVID-19 Vaccine (1 - 2023-2 5 season) 2025 Influenza Vaccine (#1) 2025 RSV Immunization Adult Patie nts (1 - 1-dose 75+ series) 2042 HIB Vaccines Aged Out No longer eligi [...] age to complete this topic Care Teams Grinder And Plater Relationship Specialty Start Date End Date Name, MD James [address] [place] [address] PCP - General Internal Medicine 05/01/19
--- OUTSIDE RECORDS SUMMARY | 2025-07-04 07:42 | XMS_ITS | Clinical Summary ---
Author Organization [facility] Address [address] [place] [address] Care Team Providers Care Chiropractic Assistant Name Role Phone Aminah Chinchilla PA-C Primary Care Provider Source Comments PLEASE NOTE, if this patient is a minor, it may be UNLAWFUL to discuss sensitive information that is contained in these records (such as FAMILY PLANNING, MENTAL HEALTH or SUBSTANCE ABUSE) with the minor patient's parent or other person without the patient's specific authorization.[facility] Encounters Date Type Department Care Team Description 05/06/[address] [id number] Marilu Spear RN from Last 3 Months Immunizations Immunization Administration Dates Next Due Flu, Preservative Free 05/02/2023,05/05/2022,05/2021 Hep B, Adult/Adol (XFVWPWB-C-NNNUH/RECOMBIVAX-ADULT) 09/20/2019,04/20/2018,03/16/2018 Influenza (FLUBLOK),recombinant,injectable,preservati ve Free 05/06/2025,05/08/2024 MODERNA COVID-19 VACCINE BIV ALENT, BLUE CAP, [...] 2017 Imm-Zoster, Recombinant (1 of 2) 2017 Alcohol and Drug Screen 08/28/2024 Depression Annual Screen 08/28/2024 [id number] ( season) 2025 08/23/2023, 05/13/2022, 07/02/2021, Additional history exists Diabetes Screening 01/29/2028 01/28/2025, 0 01/28/2025, 01/28/2025 Lipid Screening 01/28/2030 01/28/2025 Imm-DTaP/Tdap/Td (3 - Td or Tdap) 05/18/2032 022, 12/16/2011 Imm-Hepatitis B Completed 09/20/2019, 03/29, 03/16/2018 Imm-Influenza Completed 05/06/2025, 04/28, 05/02/2023, Additional history exists Insurance [employer] [facility] [place] [address] [place] [address]) Member Subscriber Plan / Payer (Ef fective 2020-Present) Name:Montana Ram Relation to Subscriber:Self Name:Montana Ram Payer ID:[id number] Type:youcalc Address: [address] [place] [id number] Care Teams Chiropractic Assistant Relationship Specialty Start Date End Date Aminah Chinchilla PA-C [address] [place] [address] PCP - General FAMILY MEDICINEFILOMENA 02/22/24
--- OUTSIDE RECORDS SUMMARY | 2025-07-04 07:42 | XMS_ITS | Data Portability ---
Author Organization [facility] Address [address] [place] [address] Assessment No assessment recorded. Plan of Treatment Reminders Order Date Submit Date Provider Last Modified By Organization Details Last Modified Time Details Appointments None record ed. Lab None record ed. Referral None record ed. Procedures None record ed. Surgeries None record ed. 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 Functional Status None recorded. Mental Status None recorded. Family History Nothing Reported. Medical History No medical history recorded. Past Encounters Encounter ID Performer Location Encounter Start Date Encounter Closed Date Diagnosis/Indication Diagnosis SNOMED-CT Code Diagnosis ICD10 Code Diagnosis IMO Codes Diagnosis Note [id number] MD Rex Pollock [address] [place] [address] 12/05/2023 10:57:20 12/18/2023 14:09:07 Pain in left thumb 8402062943 901507 M79.645 Mass of obed int of left wrist [id number] M25.832 Health Concerns Section Related Observation LastModified by Organization Detai ls LastModified Time None Recorded Concern Status LastModified by Organization Details LastModified Time None Recorded Advance Directives Directive None Recorded Payers Insurance Date Sequence Insurance Name Policy Number Policy Ayala Covered Member ID Ayala Member ID Guarantor Name 12/18/[address] [place] [address] [id number] [place] Grewal [id number] [place] Grewal Notes Date Note Type Note Provider Name and Address Organization Details Recorded Time 12/05/2023 text/html ROS as noted in the HPI Diagnosis: Mass left [id number] male who presents with a mass over the dorsal aspect of his left first CMC joint. This developed without history of trauma or other inciting event. The mass is not painful it is minimally tender.Past family, medical, social history and review of systems has been reviewed, updated and signed by me and is located in the patient s chart.Examination : Healthy appearing patient in no apparent distress. Alert and oriented. Soft mass over the dorsal aspect of left first CMC joint. Symmetric range of motion bilateral wrists and digits. Provocative testing of bilateral wrists and digits reveal no instability. No atrophy either upper extremity. Brisk cap refill all digits.X-rays ordered, obtained, and reviewed today at [facility] [ ] and lateral to left TM joint reveals no evidence of fracture or dislocation. 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 He has a benign appearing mass of his wrist that does not bother him. We have agreed to treat this with observation for now. If the mass increases in size or becomes painful he will contact me for reevaluation. He is comfortable with this plan. John Garcia MD [address] [place] [address] [address], [place], [address], [facility] - [facility] 12/05/2023 12:29:13
--- OUTSIDE RECORDS SUMMARY | 2025-07-04 07:42 | XMS_ITS | Patient Health Record ---
Author Organization [facility] [address] Address [address] [place] [address] Care Team Providers Care Web Project Manager Name Role Phone Name, James Primary Care Provider JONATHAN Mirza Unavailable [phone] Allergies No Known Allergies Reason For Referral No Information Medications Medication SIG (Take, Route, Frequency, Duration) Notes Start Date End Date Status Valsartan 80 MG 1 tablet Orally Twic e a day Active Zepbound 2.5 MG/0.5ML as directed Subcut aneous once a week; Duration: 30 days 05/22/2025 Not-Taking Problems Problem Type SNOMED Code ICD Code Onset Dates Problem Status W/U Status Risk Notes Problem Essential hypertension ([id number]) Essential hypertension (I10) Active confirmed Problem Body mass index 30.00 to 34.99 ([id number] ) Body mass index [BMI] 33.0-33.9, adult (Z68.33) Active confirmed Problem Obese class I (finding) ([id number] ) Obesity, class 1 (E66.811) Active confirmed Vital Signs Heart Rate 78 /min 06/26/2025 Oximetry 98 % 06/26/2025 Blood pressure diastolic 80 mm Hg 06/26/2025 Height 71 in 06/26/2025 Blood pressure systolic 132 mm Hg 06/26/2025 Weight 241.1 lbs 06/26/2025 BMI 33.62 kg/m2 06/26/2025 Encounters Encounter Location Date Provider Diagnosis [facility] [address] [place] [address] 05/22/2025 JONATHAN SAMS Obesity, class 1 E66 .811 ; Body mass index [BMI] 33.0-33.9, adult Z68.33 ; Essential hypertension I10 and Encounter for examination of blood pressure without abnormal findings Z01.[address] [facility] [address] [place] [address] 06/26/2025 JONATHAN SAMS Body mass index [BMI ] 33.0-33.9, adult Z68.33 ; Obesity, class 1 E66.811 ; Essential hypertension I10 and Encounter for examination of blood pressure without abnormal findings Z01.30 [facility] [address] [place] [address] 05/22/2025 JONATHAN SAMS Obesity, class 1 E66 .811 Assessments Encounter Date Diagnosis (ICD Code) Assessment Notes Treatment Notes Treatment Clinical Notes Section Notes 05/22/2025 Body mass index [BMI] 33.0-33.9, adult (ICD-10 - Z68.33) [place] is a 59-year-old male with a past medical history of hypertension, weight gain and fatty liver who presents to the office today for weight management 05/22/2025: BMI 33.5, weight 240.2.. Given patient's history of sleep apnea, I will be submitting for Zepbound 2.5 mg at this time. Patient educated that Zepbound and Wegovy may or may not be covered by insurance, we will talk about [id number] costs if this is the case. Additionally if Zepbound is not covered we will try for Wegovy. Patient aware. #Hypertension: Continue valsartan 80 mg #Sleep apnea: Continue CPAP We spent a lot of time discussing the relationship between food, exercise, sleep, mental health and obesity. Patient was counseled on the importance EATING local, organic food when possible. Patient was educated on clean 15 and dirty dozen. I provided information about reading books called The Food Rules by Buster Molina and Eat Fat Get Lean by Dr Sekou Yadav. Self education is important in the journey for weight management. Patient was offered diagnostic testing. We want to measure visceral adiposity, advanced body composition, adverse lipids, fatty acid balance, risk for heart disease and atherosclerosis, markers of inflammation and genetic susceptibility. Patient was counseled on weight management and was advised to lose weight using A. Meal Replacement Products Patient was educated on the replacement products called optifast. This is a good way of taking fixed amount of calories. It has been shown in studies to be ineffective weight management tool. This however has to be coupled with lifestyle intervention as well as laboratory data and EKG monitoring. It is impossible to know how a person will tolerate complete meal replacement. The side effects of meal replacement and weight loss could include syncopal attacks, dizziness, gallstones, potential cholecystectomy, possible heart attack and even . The benefits of meal replacement would be potential weight loss but no guarantees can be made. Meal replacement products are not covered by insurance. Once the patient has bought these products we cannot return them B. Lifestyle management which includes several strategies as below 1. Eat a low carbohydrate good fat good protein diet. Eliminate refined carbohydrates from the diet. Continue blood sugar and sugared beverages. Eat local organic when possible. Cook your own meals. Read food labels. None about healthy snacks. Portion control and food with low glycemic index 2. Exercise regularly. Try to get at least 6000 steps a day. Use a predominant to track activity level. Consider using apps like kozaza.com, Carweezpal, lose it, stick as needed for self-monitoring and weight management. Consider group exercises. Consider hiring a care trainer. Regular exercise is hawley to sustainable health and prevents as a buffer against weight regain 3. Sleep is most important for healing. Tried to sleep at least 8 hours a night. A good quality sleep needs a sleep ritual with ideal room temperature of around 68. It might help to take a shower and have no electronics in the room and sleep in a very dark room without artificial light. Start her sleep routine and get up early in the morning and go to bed on time 4. Make a social connection. Surround yourself with positive people with positive energy. Connect with friends and family. 5. Get into the habit of meditating and mindfulness while doing everything. 6. Go outside and connect with nature. C. Prescription medications Patient was educated on the use of prescription medications for medical weight loss. This is a growing list and includes phentermine, Topamax,Qsymia, contrave, belviq and saxenda. All prescription medications could have side effects including but not limited to kidney stones seizure disorder cardiac arrhythmias heart attack pancreatitis etc. etc.. Patient was encouraged to read the prescription insert and have coaching with their pharmacist and make an informed decision about taking medication and know that these medications are being prescribed with good intentions and we do not know how a patient would react to her medication. Sudden medications are FDA approved for weight loss and there is also off label use depending on patient's inability to afford medications in an attempt to lose weight D. Behavioral counseling was done to establish a relationship between food and an mood. Patient was provided information about local counseling including the office of Dr. Mccoy in [place] and Dr Mcbride at [place]. We would like to cover regular topics and build on low glycemic eating exercise mindful eating, using yoga and meditation along with deep breathing and connecting with friends and family. E. Patient's current medications were reviewed and opinion was given on medication that can cause weight gain and can be substituted F. Patient was assessed for risk with obesity including and not limiting to atherosclerosis heart disease stroke kidney disease, restrictive lung disease, irritable bowel syndrome and overall mortality. Risk of developing prediabetes diabetes and metabolic syndrome was discussed G. Therapeutic plan: We have decided to make therapeutic plan which would include choosing wisely on calories restricting portion getting active, tracking weight, getting good quality sleep and working on time management H. Patient will follow up in 4 weeks for weight management Total time spent today was 60 minutes of which greater than 50% was spent on coordinating and counseling All questions have been answered to patient's satisfaction. Pa ient verbalized understanding of diagnosis and treatments explained. Advised to call sooner prior to next visit it any questions/concerns arise. Case discussed with Mayela LOYA who reviewed the assessment and plan. Chart, medications, labs, vital signs reviewed. Dictation was accomplished with the use of Isowalk voice recognition software, which is prone to medical misidentifications and grammatical errors. This are unintentional and the practitioner does try to identify and correct these, but some could still be present. Please do not hesitate to contact practitioner for clarification. 05/22/2025 Obesity, class 1 (ICD-10 - E66.811) [place] is a 59-year-old male with a past medical history of hypertension, weight gain and fatty liver who presents to the office today for weight management 05/22/2025: BMI 33.5, weight 240.2.. Given patient's history of sleep apnea, I will be submitting for Zepbound 2.5 mg at this time. Patient educated that Zepbound and Wegovy may or may not be covered by insurance, we will talk about fvb-ke-socssa costs if this is the case. Additionally if Zepbound is not covered we will try for Wegovy. Patient aware. #Hypertension: Continue valsartan 80 mg #Sleep apnea: Continue CPAP We spent a lot of time discussing the relationship between food, exercise, sleep, mental health and obesity. Patient was counseled on the importance EATING local, organic food when possible. Patient was educated on clean 15 and dirty dozen. I provided information about reading books called The Food Rules by Buster Molina and Eat Fat Get Lean by Dr Sekou Yadav. Self education is important in the journey for weight management. Patient was offered diagnostic testing. We want to measure visceral adiposity, advanced body composition, adverse lipids, fatty acid balance, risk for heart disease and atherosclerosis, markers of inflammation and genetic susceptibility. Patient was counseled on weight management and was advised to lose weight using A. Meal Replacement Products Patient was educated on the replacement products called optifast. This is a good way of taking fixed amount of calories. It has been shown in studies to be ineffective weight management tool. This however has to be coupled with lifestyle intervention as well as laboratory data and EKG monitoring. It is impossible to know how a person will tolerate complete meal replacement. The side effects of meal replacement and weight loss could include syncopal attacks, dizziness, gallstones, potential cholecystectomy, possible heart attack and even . The benefits of meal replacement would be potential weight loss but no guarantees can be made. Meal replacement products are not covered by insurance. Once the patient has bought these products we cannot return them B. Lifestyle management which includes several strategies as below 1. Eat a low carbohydrate good fat good protein diet. Eliminate refined carbohydrates from the diet. Continue blood sugar and sugared beverages. Eat local organic when possible. Cook your own meals. Read food labels. None about healthy snacks. Portion control and food with low glycemic index 2. Exercise regularly. Try to get at least 6000 steps a day. Use a predominant to track activity level. Consider using apps like kozaza.com, Carweezpal, lose it, stick as needed for self-monitoring and weight management. Consider group exercises. Consider hiring a care trainer. Regular exercise is hawley to sustainable health and prevents as a buffer against weight regain 3. Sleep is most important for healing. Tried to sleep at least 8 hours a night. A good quality sleep needs a sleep ritual with ideal room temperature of around 68. It might help to take a shower and have no electronics in the room and sleep in a very dark room without artificial light. Start her sleep routine and get up early in the morning and go to bed on time 4. Make a social connection. Surround yourself with positive people with positive energy. Connect with friends and family. 5. Get into the habit of meditating and mindfulness while doing everything. 6. Go outside and connect with nature. C. Prescription medications Patient was educated on the use of prescription medications for medical weight loss. This is a growing list and includes phentermine, Topamax,Qsymia, contrave, belviq and saxenda. All prescription medications could have side effects including but not limited to kidney stones seizure disorder cardiac arrhythmias heart attack pancreatitis etc. etc.. Patient was encouraged to read the prescription insert and have coaching with their pharmacist and make an informed decision about taking medication and know that these medications are being prescribed with good intentions and we do not know how a patient would react to her medication. Sudden medications are FDA approved for weight loss and there is also off label use depending on patient's inability to afford medications in an attempt to lose weight D. Behavioral counseling was done to establish a relationship between food and an mood. Patient was provided information about local counseling including the office of Dr. Mccoy in [place] and Dr Mcbride at [place]. We would like to cover regular topics and build on low glycemic eating exercise mindful eating, using yoga and meditation along with deep breathing and connecting with friends and family. E. Patient's current medications were reviewed and opinion was given on medication that can cause weight gain and can be substituted F. Patient was assessed for risk with obesity including and not limiting to atherosclerosis heart disease stroke kidney disease, restrictive lung disease, irritable bowel syndrome and overall mortality. Risk of developing prediabetes diabetes and metabolic syndrome was discussed G. Therapeutic plan: We have decided to make therapeutic plan which would include choosing wisely on calories restricting portion getting active, tracking weight, getting good quality sleep and working on time management H. Patient will follow up in 4 weeks for weight management Total time spent today was 60 minutes of which greater than 50% was spent on coordinating and counseling All questions have been answered to patient's satisfaction. Hans llanes verbalized understanding of diagnosis and treatments explained. Advised to call sooner prior to next visit it any questions/concerns arise. Case discussed with Mayela LOYA who reviewed the assessment and plan. Chart, medications, labs, vital signs reviewed. Dictation was accomplished with the use of Isowalk voice recognition software, which is prone to medical misidentifications and grammatical errors. This are unintentional and the practitioner does try to identify and correct these, but some could still be present. Please do not hesitate to contact practitioner for clarification. 06/26/2025 Body mass index [BMI] 33.0-33.9, adult (ICD-10 - Z68.33) [place] is a 59-year-old male with a past medical history of hypertension, weight gain and fatty liver who presents to the office today for weight management 05/22/2025: BMI 33.5, weight 240.2.. Given patient's history of sleep apnea, I will be submitting for Zepbound 2.5 mg at this time. Patient educated that Zepbound and Wegovy may or may not be covered by insurance, we will talk about tku-yb-szusus costs if this is the case. Additionally if Zepbound is not covered we will try for Wegovy. Patient aware. #Hypertension: Continue valsartan 80 mg #Sleep apnea: Continue CPAP 06/26/2025: BMI 33.62, weight 241.1 MICC given today Patient would like to hold off on GLP-1 injections due to cost #Hypertension: Continue valsartan 80 mg tablets #Sleep apnea: On CPAP Patient is here for weight management followup. We focused on significance of healthy lifestyle changes. We talked about need to track steps, work on portion control, read food labels, get adequate sleep, give adequate rest of the body, meditate, frequent nutritious meals including vegetables and healthy choices of meat and elimination of refined carbohydrates. We also talked about mindfulness and mindful eating. Particular focus was on lifestyle changes Total time spent was 30 minutes with greater than 50% spent on counseling and coordinating care All questions have been answered to patient's satisfaction. Patient verbalized understanding of diagnosis and treatments explained. Advised to call sooner prior to next visit it any questions/concerns arise. Case discussed with Mayela LOYA who reviewed the assessment and plan. Chart, medications, labs, vital signs reviewed. Dictation was accomplished with the use of Isowalk voice recognition software, which is prone to medical misidentifications and grammatical errors. This are unintentional and the practitioner does try to identify and correct these, but some could still be present. Please do not hesitate to contact practitioner for clarification. 06/26/2025 Obesity, class 1 (ICD-10 - E66.811) [place] is a 59-year-old male with a past medical history of hypertension, weight gain and fatty liver who presents to the office today for weight management 05/22/2025: BMI 33.5, weight 240.2.. Given patient's history of sleep apnea, I will be submitting for Zepbound 2.5 mg at this time. Patient educated that Zepbound and Wegovy may or may not be covered by insurance, we will talk about fjk-nt-upurnl costs if this is the case. Additionally if Zepbound is not covered we will try for Wegovy. Patient aware. #Hypertension: Continue valsartan 80 mg #Sleep apnea: Continue CPAP 06/26/2025: BMI 33.62, weight 241.1 MICC given today Patient would like to hold off on GLP-1 injections due to cost #Hypertension: Continue valsartan 80 mg tablets #Sleep apnea: On CPAP Patient is here for weight management followup. We focused on significance of healthy lifestyle changes. We talked about need to track steps, work on portion control, read food labels, get adequate sleep, give adequate rest of the body, meditate, frequent nutritious meals including vegetables and healthy choices of meat and elimination of refined carbohydrates. We also talked about mindfulness and mindful eating. Particular focus was on lifestyle changes Total time spent was 30 minutes with greater than 50% spent on counseling and coordinating care All questions have been answered to patient's satisfaction. Patient verbalized understanding of diagnosis and treatments explained. Advised to call sooner prior to next visit it any questions/concerns arise. Case discussed with Mayela LOYA who reviewed the assessment and plan. Chart, medications, labs, vital signs reviewed. Dictation was accomplished with the use of Isowalk voice recognition software, which is prone to medical misidentifications and grammatical errors. This are unintentional and the practitioner does try to identify and correct these, but some could still be present. Please do not hesitate to contact practitioner for clarification. 05/22/2025 Essential hypertension (ICD-10 - I10) [place] is a 59-year-old male with a past medical history of hypertension, weight gain and fatty liver who presents to the office today for weight management 05/22/2025: BMI 33.5, weight 240.2.. Given patient's history of sleep apnea, I will be submitting for Zepbound 2.5 mg at this time. Patient educated that Zepbound and Wegovy may or may not be covered by insurance, we will talk about [id number] costs if this is the case. Additionally if Zepbound is not covered we will try for Wegovy. Patient aware. #Hypertension: Continue valsartan 80 mg #Sleep apnea: Continue CPAP We spent a lot of time discussing the relationship between food, exercise, sleep, mental health and obesity. Patient was counseled on the importance EATING local, organic food when possible. Patient was educated on clean 15 and dirty dozen. I provided information about reading books called The Food Rules by Buster Molina and Eat Fat Get Lean by Dr Sekou Yadav. Self education is important in the journey for weight management. Patient was offered diagnostic testing. We want to measure visceral adiposity, advanced body composition, adverse lipids, fatty acid balance, risk for heart disease and atherosclerosis, markers of inflammation and genetic susceptibility. Patient was counseled on weight management and was advised to lose weight using A. Meal Replacement Products Patient was educated on the replacement products called optifast. This is a good way of taking fixed amount of calories. It has been shown in studies to be ineffective weight management tool. This however has to be coupled with lifestyle intervention as well as laboratory data and EKG monitoring. It is impossible to know how a person will tolerate complete meal replacement. The side effects of meal replacement and weight loss could include syncopal attacks, dizziness, gallstones, potential cholecystectomy, possible heart attack and even . The benefits of meal replacement would be potential weight loss but no guarantees can be made. Meal replacement products are not covered by insurance. Once the patient has bought these products we cannot return them B. Lifestyle management which includes several strategies as below 1. Eat a low carbohydrate good fat good protein diet. Eliminate refined carbohydrates from the diet. Continue blood sugar and sugared beverages. Eat local organic when possible. Cook your own meals. Read food labels. None about healthy snacks. Portion control and food with low glycemic index 2. Exercise regularly. Try to get at least 6000 steps a day. Use a predominant to track activity level. Consider using apps like kozaza.com, Carweezpal, lose it, stick as needed for self-monitoring and weight management. Consider group exercises. Consider hiring a care trainer. Regular exercise is hawley to sustainable health and prevents as a buffer against weight regain 3. Sleep is most important for healing. Tried to sleep at least 8 hours a night. A good quality sleep needs a sleep ritual with ideal room temperature of around 68. It might help to take a shower and have no electronics in the room and sleep in a very dark room without artificial light. Start her sleep routine and get up early in the morning and go to bed on time 4. Make a social connection. Surround yourself with positive people with positive energy. Connect with friends and family. 5. Get into the habit of meditating and mindfulness while doing everything. 6. Go outside and connect with nature. C. Prescription medications Patient was educated on the use of prescription medications for medical weight loss. This is a growing list and includes phentermine, Topamax,Qsymia, contrave, belviq and saxenda. All prescription medications could have side effects including but not limited to kidney stones seizure disorder cardiac arrhythmias heart attack pancreatitis etc. etc.. Patient was encouraged to read the prescription insert and have coaching with their pharmacist and make an informed decision about taking medication and know that these medications are being prescribed with good intentions and we do not know how a patient would react to her medication. Sudden medications are FDA approved for weight loss and there is also off label use depending on patient's inability to afford medications in an attempt to lose weight D. Behavioral counseling was done to establish a relationship between food and an mood. Patient was provided information about local counseling including the office of Dr. Mccoy in [place] and Dr Mcbride at [place]. We would like to cover regular topics and build on low glycemic eating exercise mindful eating, using yoga and meditation along with deep breathing and connecting with friends and family. E. Patient's current medications were reviewed and opinion was given on medication that can cause weight gain and can be substituted F. Patient was assessed for risk with obesity including and not limiting to atherosclerosis heart disease stroke kidney disease, restrictive lung disease, irritable bowel syndrome and overall mortality. Risk of developing prediabetes diabetes and metabolic syndrome was discussed G. Therapeutic plan: We have decided to make therapeutic plan which would include choosing wisely on calories restricting portion getting active, tracking weight, getting good quality sleep and working on time management H. Patient will follow up in 4 weeks for weight management Total time spent today was 60 minutes of which greater than 50% was spent on coordinating and counseling All questions have been answered to patient's satisfaction. Hans llanes verbalized understanding of diagnosis and treatments explained. Advised to call sooner prior to next visit it any questions/concerns arise. Case discussed with Mayela LOYA who reviewed the assessment and plan. Chart, medications, labs, vital signs reviewed. Dictation was accomplished with the use of Isowalk voice recognition software, which is prone to medical misidentifications and grammatical errors. This are unintentional and the practitioner does try to identify and correct these, but some could still be present. Please do not hesitate to contact practitioner for clarification. 05/22/2025 Obesity, class 1 (ICD-10 - E66.811) Electronic Prior Authorization was requested for Zepbound 2.5 MG/0.5ML Solution Auto-injector. Provider can order medication once approval received. 05/22/2025 Encounter for examination of blood pressure without abnormal findings (ICD-10 - Z01.30) [place] is a 59-year-old male with a past medical history of hypertension, weight gain and fatty liver who presents to the office today for weight management 05/22/2025: BMI 33.5, weight 240.2.. Given patient's history of sleep apnea, I will be submitting for Zepbound 2.5 mg at this time. Patient educated that Zepbound and Wegovy may or may not be covered by insurance, we will talk about lem-zh-cyvymc costs if this is the case. Additionally if Zepbound is not covered we will try for Wegovy. Patient aware. #Hypertension: Continue valsartan 80 mg #Sleep apnea: Continue CPAP We spent a lot of time discussing the relationship between food, exercise, sleep, mental health and obesity. Patient was counseled on the importance EATING local, organic food when possible. Patient was educated on clean 15 and dirty dozen. I provided information about reading books called The Food Rules by Buster Molina and Eat Fat Get Lean by Dr Sekou Yadav. Self education is important in the journey for weight management. Patient was offered diagnostic testing. We want to measure visceral adiposity, advanced body composition, adverse lipids, fatty acid balance, risk for heart disease and atherosclerosis, markers of inflammation and genetic susceptibility. Patient was counseled on weight management and was advised to lose weight using A. Meal Replacement Products Patient was educated on the replacement products called optifast. This is a good way of taking fixed amount of calories. It has been shown in studies to be ineffective weight management tool. This however has to be coupled with lifestyle intervention as well as laboratory data and EKG monitoring. It is impossible to know how a person will tolerate complete meal replacement. The side effects of meal replacement and weight loss could include syncopal attacks, dizziness, gallstones, potential cholecystectomy, possible heart attack and even . The benefits of meal replacement would be potential weight loss but no guarantees can be made. Meal replacement products are not covered by insurance. Once the patient has bought these products we cannot return them B. Lifestyle management which includes several strategies as below 1. Eat a low carbohydrate good fat good protein diet. Eliminate refined carbohydrates from the diet. Continue blood sugar and sugared beverages. Eat local organic when possible. Cook your own meals. Read food labels. None about healthy snacks. Portion control and food with low glycemic index 2. Exercise regularly. Try to get at least 6000 steps a day. Use a predominant to track activity level. Consider using apps like kozaza.com, myfitnesspal, lose it, stick as needed for self-monitoring and weight management. Consider group exercises. Consider hiring a care trainer. Regular exercise is hawley to sustainable health and prevents as a buffer against weight regain 3. Sleep is most important for healing. Tried to sleep at least 8 hours a night. A good quality sleep needs a sleep ritual with ideal room temperature of around 68. It might help to take a shower and have no electronics in the room and sleep in a very dark room without artificial light. Start her sleep routine and get up early in the morning and go to bed on time 4. Make a social connection. Surround yourself with positive people with positive energy. Connect with friends and family. 5. Get into the habit of meditating and mindfulness while doing everything. 6. Go outside and connect with nature. C. Prescription medications Patient was educated on the use of prescription medications for medical weight loss. This is a growing list and includes phentermine, Topamax,Qsymia, contrave, belviq and saxenda. All prescription medications could have side effects including but not limited to kidney stones seizure disorder cardiac arrhythmias heart attack pancreatitis etc. etc.. Patient was encouraged to read the prescription insert and have coaching with their pharmacist and make an informed decision about taking medication and know that these medications are being prescribed with good intentions and we do not know how a patient would react to her medication. Sudden medications are FDA approved for weight loss and there is also off label use depending on patient's inability to afford medications in an attempt to lose weight D. Behavioral counseling was done to establish a relationship between food and an mood. Patient was provided information about local counseling including the office of Dr. Mccoy in [place] and Dr Mcbride at [facility]. We would like to cover regular topics and build on low glycemic eating exercise mindful eating, using yoga and meditation along with deep breathing and connecting with friends and family. E. Patient's current medications were reviewed and opinion was given on medication that can cause weight gain and can be substituted F. Patient was assessed for risk with obesity including and not limiting to atherosclerosis heart disease stroke kidney disease, restrictive lung disease, irritable bowel syndrome and overall mortality. Risk of developing prediabetes diabetes and metabolic syndrome was discussed G. Therapeutic plan: We have decided to make therapeutic plan which would include choosing wisely on calories restricting portion getting active, tracking weight, getting good quality sleep and working on time management H. Patient will follow up in 4 weeks for weight management Total time spent today was 60 minutes of which greater than 50% was spent on coordinating and counseling All questions have been answered to patient's satisfaction. Pa ient verbalized understanding of diagnosis and treatments explained. Advised to call sooner prior to next visit it any questions/concerns arise. Case discussed with Mayela LOYA who reviewed the assessment and plan. Chart, medications, labs, vital signs reviewed. Dictation was accomplished with the use of Isowalk voice recognition software, which is prone to medical misidentifications and grammatical errors. This are unintentional and the practitioner does try to identify and correct these, but some could still be present. Please do not hesitate to contact practitioner for clarification. 06/26/2025 Essential hypertension (ICD-10 - I10) [place] is a 59-year-old male with a past medical history of hypertension, weight gain and fatty liver who presents to the office today for weight management 05/22/2025: BMI 33.5, weight 240.2.. Given patient's history of sleep apnea, I will be submitting for Zepbound 2.5 mg at this time. Patient educated that Zepbound and Wegovy may or may not be covered by insurance, we will talk about rsm-gl-[id number] costs if this is the case. Additionally if Zepbound is not covered we will try for Wegovy. Patient aware. #Hypertension: Continue valsartan 80 mg #Sleep apnea: Continue CPAP 06/26/2025: BMI 33.62, weight 241.1 MICC given today Patient would like to hold off on GLP-1 injections due to cost #Hypertension: Continue valsartan 80 mg tablets #Sleep apnea: On CPAP Patient is here for weight management followup. We focused on significance of healthy lifestyle changes. We talked about need to track steps, work on portion control, read food labels, get adequate sleep, give adequate rest of the body, meditate, frequent nutritious meals including vegetables and healthy choices of meat and elimination of refined carbohydrates. We also talked about mindfulness and mindful eating. Particular focus was on lifestyle changes Total time spent was 30 minutes with greater than 50% spent on counseling and coordinating care All questions have been answered to patient's satisfaction. Patient verbalized understanding of diagnosis and treatments explained. Advised to call sooner prior to next visit it any questions/concerns arise. Case discussed with Mayela LOYA who reviewed the assessment and plan. Chart, medications, labs, vital signs reviewed. Dictation was accomplished with the use of Isowalk voice recognition software, which is prone to medical misidentifications and grammatical errors. This are unintentional and the practitioner does try to identify and correct these, but some could still be present. Please do not hesitate to contact practitioner for clarification. 06/26/2025 Encounter for examination of blood pressure without abnormal findings (ICD-10 - Z01.30) [place] is a 59-year-old male with a past medical history of hypertension, weight gain and fatty liver who presents to the office today for weight management 05/22/2025: BMI 33.5, weight 240.2.. Given patient's history of sleep apnea, I will be submitting for Zepbound 2.5 mg at this time. Patient educated that Zepbound and Wegovy may or may not be covered by insurance, we will talk about nqs-jr-[id number] costs if this is the case. Additionally if Zepbound is not covered we will try for Wegovy. Patient aware. #Hypertension: Continue valsartan 80 mg #Sleep apnea: Continue CPAP 06/26/2025: BMI 33.62, weight 241.1 MICC given today Patient would like to hold off on GLP-1 injections due to cost #Hypertension: Continue valsartan 80 mg tablets #Sleep apnea: On CPAP Patient is here for weight management followup. We focused on significance of healthy lifestyle changes. We talked about need to track steps, work on portion control, read food labels, get adequate sleep, give adequate rest of the body, meditate, frequent nutritious meals including vegetables and healthy choices of meat and elimination of refined carbohydrates. We also talked about mindfulness and mindful eating. Particular focus was on lifestyle changes Total time spent was 30 minutes with greater than 50% spent on counseling and coordinating care All questions have been answered to patient's satisfaction. Patient verbalized understanding of diagnosis and treatments explained. Advised to call sooner prior to next visit it any questions/concerns arise. Case discussed with Mayela LOYA who reviewed the assessment and plan. Chart, medications, labs, vital signs reviewed. Dictation was accomplished with the use of Isowalk voice recognition software, which is prone to medical misidentifications and grammatical errors. This are unintentional and the practitioner does try to identify and correct these, but some could still be present. Please do not hesitate to contact practitioner for clarification. Plan Of Treatment Next Appt Details Provider Name:JONATHAN SAMS, 09:30:00 AM, [address], [place], [phone], Insurance Providers Payer Name Payer Address Payer Phone Subscriber Number Group Number Insured Name Patient Relationship to Insured Coverage Start Date Coverage End Date [facility] [address] [place] [address] [id number] [place] Summers Self - patient is the insured Medications Administered Medication Instructions Date of Administration Dosage Notes MICC B12 INJECTION 06/26/2025 1 mL Medical (General) History Medical History History ICD Code high blood pressure weight gain/loss liver disease Sleep Apnea on CPAP Surgical History Surgery Date(Month/Year) herniated disk repair
--- OUTSIDE RECORDS SUMMARY | 2025-07-04 07:42 | XMS_ITS | Clinical Summary ---
Author Organization [employer] [facility] Address [address] [place] [address] Care Team Providers Care Attendance Clerk Name Role Phone Name, James LOYA Primary Care Provider [phone] Allergies No known active allergies Medications valsartan (Diovan) 80 MG tablet Take 1 tablet (80 mg) by mouth Once per day. 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 Colon, transverse, polypectomies: - Hyperplastic mucosal [...] Encounters Date Type Department Care Team Description 05/21/2025 3:30 PM EDT Office Visit [facility] MEDICINE [address] [place] [id number] Name, MD James Hypertension, unspecified type (Primary Dx); Fatty liver; Obesity (BMI 30.0-34.9); Preop examination; Screening for diabetes mellitus 05/21/2025 Travel 05/14/2025 Travel from Last 3 Months Immunizations Immunization Administration Dates Next Due Hep B, adult 09/20/2019,04/20/2018,03/16/2018 Influenza injectable quadriv alent IIV4 with preservative 05/31/2018 Influenza injectable quadriv alent preservative free 05/02/2023,05/05/2022,05/07/2021,2013 Influenza, Recombinant, inje ctable, preservative free 05/06/2025,05/08/2024 TD (adult), 2 Lf tetanus tox oid, [...] Sign Reading Time Taken Comments Blood Pressure 154/84 05/21/2025 3:37 PM EDT Pulse 92 05/21/2025 3:37 PM EDT Temperature 36.3 C (97.4 F) 05/21/2025 3:37 PM EDT Respiratory Rate 14 05/21/2025 3:37 PM EDT Oxygen Saturation 95% 05/21/2025 3:37 PM EDT Inhaled Oxygen Concentration - - Weight 110 kg (241 lb 12.8 oz) 05/21/2025 3:37 P M EDT Height 180.3 cm (5' 11 ) 05/21/2025 3:37 PM EDT Body Mass Index 33.72 05/21/2025 3:37 PM EDT Plan of Treatment Upcoming Encounters Date Type Department Care Team (Late st Contact Info) Description 07/17/2025 11:15 AM EST Office Visit [facility] MEDICINE [address] [place] [phone] Name, MD James [address] [place] [address] Health Maintenance Due Date Last Done Comments CT Colonography 1967 FIT DNA/Cologuard 1967 FIT 1967 FOBT 1967 HIV Screening 1967 Sigmoidoscopy 1967 Hepatitis C Screening 1985 Hepatitis A Vaccines (1 of 2 - Risk 2-dose series) 1986 Pneumococcal Vaccine: 50+ Years (1 of 1 - PCV) 2017 Zoster Vaccines (1 of 2) 2017 Colonoscopy 07/12/2023 07/12/2018 Colorectal Cancer Screening 07/12/2023 COVID-19 Vaccine ( season) 2025 08/23/2023, 05/13/2022, 07/02/2021, Additional history exists Disability Screening 01/08/2026 01/08/2025 Alcohol/Substance Use Screening 01/15/2026 01/15/2025 Depression Screening 01/15/2026 01/15/2025, 01/16/20 SDOH Screening 01/15/2026 01/15/2025 Tobacco Screening 05/21/2026 05/21/2025 Lipid Panel 01/28/2030 01/28/2025, 05/28, 05/15/2020 DTaP/Tdap/Td Vaccines (4 - Td or Tdap) 05/18/2032 05/18/2022, 05/18/2022, 12/16/2011 RSV Patients and Patients Aged 60 years or older (1 - 1-dose 75+ series) 2042 Hepatitis B Vaccines Completed 09/20/2019, 04/20/2018, 03/16/2018 Influenza Vaccine Completed 05/06/2025, , 05/02/2023, Additional history exists HIB Vaccines Aged Out [...] this topic Meningococcal Vaccine Aged Out No rodnye sheila eligible based on patient's age to complete this topic RSV under 20 months Aged Out No longe r eligible based on patient's age to complete this topic Rotavirus Vaccines Aged Out No longer eligible based on patient's age to complete this topic Procedures Procedure Name Priority Date/Time Associated Diagnosis Comments LIPID PANEL, STANDARD Routine 01/28/2025 7:48 AM EDT Obesity (BMI 30.0-34.9) HM COLONOSCOPY Routine 07/12/2018 9:03 AM EST from Last 3 Months or Most Recently Relevant to Health Maintenance Results * (ABNORMAL) Lipid Panel, Standard (01/28/2025 7:48 AM EDT) Triglycerides 132 <150 mg/dL [facility] Comment:Desirable Triglyceri de: less than 150 mg/dLBorderline High Triglyceride 150-199 mg/dLHigh Triglyceride: 200-499 mg/dLVery High Triglyceride: greater than or equal to 5OO mg/dL Cholesterol 163 <200 mg/dL [facility] Comment:Desirable Cholestero l: less than 200 mg/dLBorderline High Cholesterol: 200-239 mg/dLHigh Cholesterol: greater than 239 mg/dL LDL Cholesterol Calculated 109(H) <100 mg/dL [facility] Comment:Desirable LDL: less than 100 mg/dLNear Optimal/Above Optimal LDL: 110- 129 mg/dLBorderline High LDL: 130-159 mg/dLHigh LDL: 160-189 mg/dLVery High LDL: greater than or equal to 190 mg/dL HDL Cholesterol 28(L) >40 mg/dL [facility] Comment:Desirable HDL: great er than 40 mg/dL Note: This HDL assay may give artificially low results in patients with liver disease. Blood Venous blood specimen / Unknown 01/28/2025 7:48 AM EDT 01/28/2025 7:49 AM EDT us James Paula MD LAB BLOOD ORDERABLES Final Resul t [facility] [address] [place] [address] [phone] * Hm Colonoscopy (07/12/2018 9:03 AM EST) Colonoscopy Normal Normal Narrative Kimberly Guillory - 07/12/2018 9:03 AM EST Recommended 5 year follow up ( [facility] ) Historical Provider HEALTH MAINTENANCE Final Result from Last 3 Months or Most Recently Relevant to Health Maintenance Insurance [facility] , [address] [place] [address] Care Teams Attendance Clerk Relationship Specialty Start Date End Date Name, MD James [address] [place] [phone] PCP - General Family Medicine 12/23/15
--- OUTSIDE RECORDS SUMMARY | 2025-07-04 07:42 | XMS_ITS | Encounter Summary ---
Author Organization [employer] [facility] [facility] Address [address] [place] [address] [address] [place] [address] Care Team Providers Care Administrative Support Coordinator Name Role Phone Name, James LOYA Primary Care Provider [phone] Encounter Details Date Type Department Care Team (Late st Contact Info) Description 02/06/2023 Abstract [facility] MEDICINE [address] [place] [address] [phone] NameJames MD [address] [place] [address] [phone] Social History Tobacco Use Types Packs/Day Years Used Date Smoking Tobacco: Never Smokeless Tobacco: Never Depression Answer Date Recorded Patient Health Questionnaire-9 Score 0 12/19/2022 Depression Answer Date Recorded Patient Health Questionnaire-2 Score 0 12/19/2022 Sex and Gender Information Value Date Recorded Sex Assigned at Male 06/27/2022 10:20 AM EDT Legal Sex Male 10:20 AM EDT Gender Identity Male 06/27/2022 10:20 AM EDT Sexual Orientation Straight 06/27/2022 10 :20 AM EDT documented as of this encounter Plan of Treatment Upcoming Encounters Date Type Department Care Team (Late st Contact Info) Description 07/17/2025 11:15 AM EST Office Visit [facility] MEDICINE [address] [place] [address] [phone] NameJames MD [address] [place] [address] [phone] documented as of this encounter Procedures Procedure Name Priority Date/Time Associated Diagnosis Comments HM COLONOSCOPY Routine 07/12/2018 9:03 AM EST documented in this encounter Results * Colonoscopy (07/12/2018 9:03 AM EST) Colonoscopy Normal Normal Narrative Kimberly Guillory - 07/12/2018 9:03 AM EST Recommended 5 year follow up ( [facility] ) us Historical Provider HEALTH MAINTENANCE Final Result documented in this encounter Visit Diagnoses Not on filedocumented in this encounter Additional Health Concerns Assessment Noted Time PHQ-9 Depression Total Score: 0 12/20/19 23 4:02 PM EDT documented as of this encounter Care Teams Administrative Support Coordinator Relationship Specialty Start Date End Date Name, MD James [address] [place] [address] PCP - General Family Medicine 12/23/15 documented as of this encounter
--- OUTSIDE RECORDS SUMMARY | 2025-07-04 07:42 | XMS_ITS | Encounter Summary ---
Author Organization [employer] [facility] Address [address] [place] [address] Care Team Providers Care Blast Furnace Helper Name Role Phone Name, James LOYA Primary Care Provider [phone] Reason for Visit * Reason Onset Date Comments Med Refill 03/26/2024 Encounter Details Date Type Department Care Team ([facility] st Contact Info) Description 03/26/2024 Telephone [facility] MEDICINE [address] [place] [address] Name, MD James [address] [place], [place] [phone] Med Refill Social History Tobacco Use Types Packs/Day Years Used Date Smoking Tobacco: Never Smokeless Tobacco: Never Alcohol Use Standard Drinks/Week Comments Yes 0 (1 standard drink = 0.6 oz pur e alcohol) socially Depression Answer Date Recorded Patient Health Questionnaire-9 Score 0 12/19/2022 Housing Stability Answer Date Recorded What is [...] encounter Miscellaneous Notes * Telephone Encounter - Chana Ritter LPN - 03/26/2024 10:45 AM EDT Medication was sent to [facility][id number] on 11/28/23 #90 with 1 refill. * Telephone Encounter - Shawn Valentine - 03/26/2024 10:39 AM EDT TC from pt requesting medication refill. Medications needing refill : valsartan (Diovan) 40 MG tablet To be sent to: [facility]/pharmacy #[id number] - [facility] - [address] documented in this encounter Plan of Treatment Upcoming Encounters Date Type Department Care Team (Late st Contact Info) Description 07/17/2025 11:15 AM EST Office Visit [facility] MEDICINE [address] [place] [address] Name, MD James [address] [place] [address] documented as of this encounter Visit Diagnoses Not on filedocumented in this encounter Additional Health Concerns Assessment Noted Time PHQ-9 Depression Total Score: 0 12/20/19 23 4:02 PM EDT documented as of this encounter Care Teams Blast Furnace Helper Relationship Specialty Start Date End Date NameJames MD [address] [place] [address] PCP - General Family Medicine 12/23/15 documented as of this encounter
[2025-07-04 07:58] LABS: MANUAL DIFF FLAG NO
[2025-07-04 08:05] LABS: Hematocrit 49.7 % (42.0-52.0); Hemoglobin 16.4 g/dl (14.0-18.0); Imm Gran Abs Auto 0.03 X10*3/uL (0.00-0.03); Imm Gran Pct Auto 0.5 % (0.0-0.4); Lymphocytes Absolute Auto 1.4 X10*3/uL (1.2-4.9); Mean Corpuscular HGB Conc 33.0 g/dl (31.0-36.0); Mean Corpuscular Hemoglobin 29.6 pg (27.0-33.0); Mean Corpuscular Volume 89.7 fL (80.0-98.0); NRBC Abs Auto 0.000 X10*3/uL (0.0-0.012); NRBC Pct Auto 0.0 /100WBC (0.0-0.2); Platelet Count 215 X10*3/uL (160-400); Red Blood Count 5.54 X10*6/uL (4.60-5.80); White Blood Count 6.0 X10*3/uL (4.8-10.8)
[2025-07-04 08:17] LABS: INTERNATIONAL NORM RATIO 1.1 (0.9-1.1); Prothrombin Time 13.0 SEC (11.2-13.5)
[2025-07-04 08:19] LABS: Partial Thromboplastin Time 29.6 SEC (26.7-34.1)
[2025-07-04 08:37] LABS: Alanine Aminotransferase 55 U/L (0-40); Albumin Level 4.9 g/dL (3.5-5.0); Alkaline Phosphatase 63 U/L (39-117); Anion Gap 11 (12-20); Aspartate Amino Transferase 31 U/L (5-37); Blood Urea Nitrogen 19 mg/dL (9-16); Calcium 9.1 mg/dL (8.4-10.2); Carbon Dioxide 28 mmol/L (22-29); Chloride 103 mmol/L (96-108); Estimated Glomerular Filt Rate > 60; Potassium 4.2 mmol/L (3.3-5.1); Sodium 138 mmol/L (135-145); Total Protein 7.5 g/dL (6.5-8.0)
[2025-07-04 08:45] LABS: Appearance Urine Clear; Glucose Urine UA Negative (Negative); PH 5.5 (5.0-9.0); Specific Gravity - Urine 1.010 (1.005-1.025)
[2025-07-04 08:49] LABS: HBS Num1 3.82 mIU/mL (0-7.99); HBsAGNum1 0.37 S/CO (0.00-0.99); Hepatitis B Surface Antigen Negative (Negative); ~HepC Num1 0.06 S/CO (0.00-0.79); ~Hepatitis B Surface Antibody NONREACTIVE (Nonreactive); ~Hepatitis C Antibody Nonreactive (Nonreactive)
[2025-07-04 08:52] LABS: ~Hepatitis A Antibody IgG 7.44 S/CO (0.00-0.99)
== END 2025-07-04 07:41 | disposition home or self-care (01) ==
LOC: HO.LAB 07:40
PROVIDERS: PCP Internal Medicine Geriatric Medicine; Visit Provider Internal Medicine Geriatric Medicine
DX: Z13.1 Encounter for screening for diabetes mellitus (principal); I10 Essential (primary) hypertension; K76.0 Fatty (change of) liver, not elsewhere classified
CPT/HCPCS: 36415; 80053; 81001; 83036; 85025; 85610; 85730; 86706; 86708; 86803; 87340